=== PATIENT | female | born 1960 | race Caucasian/White ===

== ENCOUNTER 2019-11-20 11:16 | Emergency (ER) | payer MEDICARE, MEDICAID, SELFPAY ==
--- NOTE | ~2019-11-20 | XR_ITS ---
XR hip RT 2V w AP pelvis DATE: 11/20/2019 11:51 INDICATION: Fall. Pelvic and right hip pain TECHNIQUE: AP pelvis. AP and crosstable lateral views of right hip. COMPARISON: None FINDINGS: There is a comminuted fracture of the proximal right femoral shaft with complete medial dis placement and approximately 4 cm overriding of the major proximal and distal fracture fragments. Ther e is approximately 24 degrees apex lateral angulation. The pubic symphysis and sacroiliac joints are intact. No pelvic fracture or bone destruction is evide nt. There is no evidence of hip dislocation on either side. No fracture or dislocation of the right h ip itself. Diffuse osteopenia. IMPRESSION: Comminuted fracture of proximal right femoral shaft Reviewed, dictated and finalized at location D.
[2019-11-20 11:14] VITALS: BP 91/76; PULSE 89; RESP 18; TEMP 37.2; O2SAT 90
--- NOTE | 2019-11-20 11:29 | ED.FALL ---
HPI - Fall General Chief Complaint: Fall Stated Complaint: FALL - R LEG PAIN Time Seen by Provider: 11/20/19 11:29 Source: patient Mode of arrival: EMS Limitations: no limitations History of Present Illness HPI Narrative: A 59 y/o female presents to the ED, via EMS, after a fall today. Pt states that she was reaching for paper towels on the top shelf when she hit her head on the cabinet and fell backwards. Pt heard something pop in her RLE and she now c/o RLE pain, greatest near her hip. She denies CP and SOB. EMS gave Morphine en route. Fall from: standing Place fall occurred: home Loss of consciousness: none Related Data Allergies Allergy/AdvReac Type Severity Reaction Status Date / Time Iodinated Contrast Media Allergy Unknown Unknown Verified 11/20/19 11:24 Penicillins Allergy Unknown Unknown Verified 11/20/19 11:24 Review of Systems Review of Systems: All systems reviewed & are unremarkable except as noted in HPI and below Constitutional: Comments: Reports: a fall Cardiovascular: Cardiovascular: Denies chest pain Respiratory: Respiratory: Denies dyspnea Musculoskeletal: Comments: Reports: RLE pain Neurologic: Comments: Reports: HI [facility] Past Medical History Medical History Anxiety Arthritis Asthma Bronchitis COPD (chronic obstructive pulmonary disease) Depression Emphysema lung Endometriosis GERD (gastroesophageal reflux disease) [place] (hard of hearing) Hypothyroid Pneumonia Seizures Shingles Sinus problem Sleep apnea Wears glasses Surgical History Surgical History H/O bilateral cataract extraction H/O dilation and curettage H/O laparoscopy History of bladder surgery urethral sling History of hysterectomy History of orthopedic surgery bilateral wrist, left carpal tunnel History of tonsillectomy Family History Family History Other Family history of arthritis Family history of cardiovascular disease Family history of mental disorder Family history of seizure disorder Hypertension Social History Social History Smoking status: Former smoker Smoking end date: 09/02/14 Comments No PCP on file. Exam Const: General: alert and ill appearing chronically Nutritional Appearance: obese Orientation/consciousness: patient oriented x3 Other: mild distress HENMT: Mouth: Yes dry mucous membranes Eyes: Conjunctivae: conjunctivae normal Pupils: Equal, round and reactive pupils present Neck: Neck: normal visual inspection Resp: Effort & Inspection: normal respiratory effort Auscultation: wheezes Cardio: Rate: regular rate Rhythm: regular rhythm Skin: General skin exam: normal color Wounds: no wounds Neuro: General: patient oriented x3, moves all extremities and no focal motor deficits Speech: normal speech Extrem: Other: right leg shortened with tenderness over proximal thigh and hip Psych: Affect: Anxious affect present Course Consultations Consultation #1: Discussed case with Dr. Fisher and he does not feel comfortable taking this fracture. He recommends transfer. Date: 11/20/19 Time: 12:07 Vital Signs Vital signs: Vital Signs Temperature 37.2 C 11/20/19 11:14 Pulse Rate 89 11/20/19 11:14 Respiratory Rate 18 11/20/19 11:14 Blood Pressure 91/76 L 11/20/19 11:14 Pulse Oximetry 90 11/20/19 11:14 Temperature 37.2 C 11/20/19 11:14 Pulse Rate 102 H 11/20/19 13:42 Respiratory Rate 23 H 11/20/19 13:42 Blood Pressure 120/77 11/20/19 13:42 Pulse Oximetry 93 11/20/19 13:42 MDM - Fall Differential Diagnosis Differential diagnosis: Likely other (hip fracture, contusion) Medical Records Attestation: I reviewed the patient's medical records. Imaging Data Attestation: I personally reviewed and interpreted this imaging study as follows:
[2019-11-20 11:32] VITALS: BP 117/84; PULSE 91; RESP 18; O2SAT 94
[2019-11-20] MEDS: MORPHINE SULFATE 4 MG/ML INJ IV PUSH ×3 (12:17→17:05)
[2019-11-20 12:22] VITALS: BP 131/75; PULSE 89; RESP 21; O2SAT 94
[2019-11-20 13:42] VITALS: BP 120/77; PULSE 102; RESP 23; O2SAT 93
--- NOTE | 2019-11-20 14:24 | PC.NURSE ---
Pt report given to JAKE Borjas at [facility]. No further questions asked at this time.
--- NOTE | 2019-11-20 14:34 | PC.NURSE ---
[facility] requested, ETA of 1600 for pt transfer. Pt updated at this time, will continue to monitor.
[2019-11-20 14:38] VITALS: BP 141/80; PULSE 98; RESP 16
--- NOTE | 2019-11-20 15:10 | PC.NURSE ---
[facility] declined transfer [facility] accepted ETA 1600 Trip #[id number]
--- NOTE | 2019-11-20 16:48 | PC.NURSE ---
ETA for [facility] [id number]
[2019-11-20 17:07] VITALS: BP 142/62; PULSE 92; RESP 18; O2SAT 92
[2019-11-20] MEDS: MORPHINE SULFATE 2 MG/ML INJ IV PUSH (17:24)
--- NOTE | 2019-11-20 17:47 | PC.NURSE ---
rt pedal pulse audible with doppler after traction splint placed. d/c with ems to [facility] emergency room. stable at time of transfer
== END 2019-11-20 17:47 | disposition short-term general hospital (02) ==
PROVIDERS: Emergency Provider Emergency Medicine; PCP Family Medicine Adolescent Medicine
DX: S72.351A Displaced comminuted fracture of shaft of right femur, initial encounter for closed fracture (principal); M19.90 Unspecified osteoarthritis, unspecified site; J43.9 Emphysema, unspecified; K21.9 Gastro-esophageal reflux disease without esophagitis; N80.9 Endometriosis, unspecified; E03.9 Hypothyroidism, unspecified; G47.30 Sleep apnea, unspecified; Z98.42 Cataract extraction status, left eye; Z98.41 Cataract extraction status, right eye; W18.09XA Striking against other object with subsequent fall, initial encounter
CPT/HCPCS: 73502; 73521; 96374; 96376; 99285; J2270

== ENCOUNTER 2020-02-18 13:00 | Outpatient (RCR) | payer MEDICARE, MEDICAID, SELFPAY ==
--- NOTE | 2020-01-20 15:35 | PTOPEVAL ---
PHYSICAL THERAPY EVALUATION AND PLAN OF CARE 01-20-2020 The PT evaluation was completed for the diagnosis of s/p R femur fracture with ORIF due to fall. Her plan of treatment is scheduled for 2x/week for 4 weeks. Thank you for referring Deena Wylie to [facility]. Please review, sign, date and return this plan of care KATINA. I agree with and certify that the following plan of care is medically necessary. Referring Physician Date Attending Provider: Nestor Mann MD *PT Outpatient Evaluation Start: 01/20/20 14:30 Document 01/20/20 14:31 ALICIA (Rec: 01/20/20 15:29 ALICIA [id number]) Outpatient Past Medical History Past Medical History Source of Past Medical History Patient Neurological History Hx Seizures Yes: meds Cardiovascular History Hx Cardiac Disorders No Significant History Respiratory History Hx Asthma Yes: meds/inhaler Hx Chronic Obstructive Pulmonary Disease Yes: meds/inhaler (COPD) Gastrointestinal History Hx Other Gastrointestinal Disorders Yes: exp lap Musculoskeletal History Hx Fractures Yes Hx Orthopedic Surgery Yes: R knee arthroscopy, R & L hand/wrist surg Hx Other Musculoskeletal Disorders Yes: B carpal tunnel:L sh fracture- non surgical Endocrine History Hx Hypothyroidism Yes: meds HEENT History Hx Cataracts Yes: surg bilat eyes Hx Tonsillectomy Yes Reproductive History Hx Hysterectomy Yes Psychosocial History Hx Depression Yes Evaluation Information Problem Diagnosis s/p R femur fracture with ORIF Onset 11-20-2019 Subjective Information standing, turned and fell- Query Text:As Reported By Patient/ fractured leg; had [facility] PT, Family completed with it; Previous Treatments Previous Treatments For This Problem hospital, then to [facility] for rehab- one day; did not like and went home,[facility] Prior Level of Function Activity Level (Last 3 Months) Occupation not working- on disability for back pain and depression Activity of Daily Living Ability Independent Indoor/Home Mobility Independent Community Mobility Independent Stairs Ability Independent Functional Cognition (Planning, Shopping Independent , Taking Medications) Cooking Yes Cleaning Yes Laundry Yes Shopping Yes Driving No Home Setting Home Type House,Multiple Levels Environmental Barriers Railing, Ascend Left,Railing,
--- NOTE | 2020-01-28 10:38 | PCPTNOTE ---
pt called and canceled due to illness;
--- NOTE | 2020-02-11 08:39 | PCPTNOTE ---
Patient called & cancelled scheduled appointment this date due to being sick.
--- NOTE | 2020-02-18 13:40 | PTOPEVAL ---
PHYSICAL THERAPY DISCHARGE 02-18-2020 Ms. Wylie has received 7 PT sessions, from January 19 to today, for the diagnosis of S/P R femur ORIF. She called and canceled 2 appointments. She has improved with R LE strength, transfer skills supine/sit and sit/stand, R hip ER AROM, TUG, walking tolerance and stair ability. She has been educated on a home exercise program. Deena is ambulating with the wheeled walker and continues to report pain rating of 6-10/10. She is independent with supine and standing exercises. She requests that her PT be finished today. And stated that she would continue to do her home exercises, use the wheeled walker and walk as much as she is able. The goals were partially achieved. Discharge PT services. Thank you for referring Deena Wylie to [facility]. Please review, sign, date and return this discharge KATINA. I agree with and certify that the following plan of care is medically necessary. Referring Physician Date Attending Provider: Nestor Mann MD Document 02/18/20 13:00 ALICIA (Rec: 02/18/20 13:40 ALICIA [id number]) Subjective Information Deena reports: not walking Query Text:As Reported By Patient/ very much, use wheel chair at Family home when leg hurts-but using less; can put on shoes and socks without any problems; has not been going out and during much due to the virus; wants to be finished with therapy and do her exercises at home; Pain Assessment Timing of Pain Assessment Timing of Pain Assessment Assessment Pain Scale Pain Scale Used Numeric (1 - 10) Self Report Pain Assessment Right Leg(s) Reported Pain Level 8 Radicular Pain Location mid quad and lateral hip Pain Frequency Acute Other Pain Description hurts Lowest Pain Intensity 6 Greatest Pain Intensity 10 Pain Aggravating Factors Walking Pain Relief Interventions Used By Elevation,Heat,Inactivity/Rest Patient ,Medication Additional Pain Comments no falls; reports taking 4 or more pain pills/day; Pain Score Pain Score 8: Self Report Lower Extremity Range of Motion General Lower Extremity Range of Motion Gross Lower Extremity Range of Motion sitting: R hip ER- able to Comments lift R LE and cross leg, R ankle to above knee; supine hip IR and ER without pain; ER 50' with hip/knee flexion 90'; Lower Extremity Muscle Strength Testing General Lower Extremity Strength Gross Lower Extremity Strength supine R LE: SLR x 15 reps; bridge x 18 reps;hip abduction
== END 2020-02-19 08:28 | disposition home or self-care (01) ==
LOC: ANHPT 13:00
PROVIDERS: PCP Family Medicine Adolescent Medicine; Visit Provider Family Medicine Adolescent Medicine
DX: S72.91XD Unspecified fracture of right femur, subsequent encounter for closed fracture with routine healing (principal)
CPT/HCPCS: 97110; 97161

== ENCOUNTER → 2020-05-02 12:39 | Outpatient (CLI) | payer MEDICARE, MEDICAID, SELFPAY ==
--- NOTE | ~2020-05-02 | XR_ITS ---
EXAMINATION: XR hip BI wo pelvis DATE: 05/02/2020 14:56 INDICATION: Bilateral hip pain. TECHNIQUE: 2 views of right hip and 2 views of left hip on a total of 7 radiographs were obtained. COMPARISON: Pelvis and right hip radiographs 11/20/2019 FINDINGS: There is a comminuted fracture of right femoral diaphysis. The main distal fracture fragmen t demonstrates 2 mm medial displacement and 5 mm posterior displacement. Internal fixation seen with antegrade intramedullary levi, 2 distal interlocking screws, and 2 femoral head/neck screws. There is some callus formation. There is mild bilateral hip osteoarthritis. Suture anchors overlie the pubic b ones. IMPRESSION: 1. Healing comminuted fracture of diaphysis of right femur with internal fixation. 2. Mild osteoarthritis of the hips. Reviewed, dictated and finalized at location A. IMPRESSION: 1. Healing comminuted fracture of diaphysis of right femur with internal fixati on. 2. Mild osteoarthritis of the hips.
== END ==
PROVIDERS: PCP Family Medicine Adolescent Medicine; Visit Provider Family Medicine Adolescent Medicine
DX: M16.0 Bilateral primary osteoarthritis of hip (principal)
CPT/HCPCS: 73521

== ENCOUNTER 2022-07-02 15:17 | Outpatient (CLI) | payer MEDICARE, MEDICAID, SELFPAY ==
--- NOTE | ~2022-07-02 | MM_ITS ---
EXAMINATION: MM screening ruddy BI w kenyetta HISTORY: Screening TECHNIQUE: Craniocaudal and mediolateral oblique 3-D tomosynthesis images were obtained and synthetic 2-D images were generated. CAD analysis was submitted and interpreted. COMPARISON: Comparison to multiple prior studies sequentially, with oldest reviewed study dated 02/12. BREAST PARENCHYMAL COMPOSITION: Breast composed of scattered areas of fibroglandular density FINDINGS: There is no evidence of suspicious mass, calcification, or architectural distortion to sugg est malignancy in either breast. There has been no suspicious interval change. IMPRESSION: 1. No mammographic evidence of malignancy. 2. Recommend routine screening mammography in one year. BI-RADS Category 1: Negative Reviewed, dictated and finalized at location A.
== END 2022-07-02 15:18 | disposition home or self-care (01) ==
LOC: ANHIMG 15:19
PROVIDERS: PCP Family Medicine Adolescent Medicine; Visit Provider Family Medicine Adolescent Medicine
DX: Z12.31 Encounter for screening mammogram for malignant neoplasm of breast (principal)
CPT/HCPCS: 77063; 77067

== ENCOUNTER → 2022-09-14 09:58 | Outpatient (CLI) | payer MEDICARE, MEDICAID, SELFPAY ==
--- NOTE | ~2022-09-14 | XR_ITS ---
EXAMINATION: XR lumbar spine 2-3V DATE: 09/14/2022 10:28 INDICATION: Low back pain TECHNIQUE: Anteroposterior and lateral views of the lumbar spine, and cone-down lateral view of the l umbosacral junction were obtained. COMPARISON: 06/28/2015 FINDINGS: There is a chronic mild compression fracture of L5. There are 3 mm of stable anterolisthesi s of L5 on S1. Vertebral body heights and alignment are otherwise maintained. There is severe loss of intervertebral disc space height at L5-S1 with interval worsening. There is moderate to severe facet joint osteoarthritis of the lower lumbar spine. Calcified atherosclerosis is noted. There is antegra de intramedullary levi and interlocking intratrochanteric screw fixation of the right femur. There is moderate osteoarthritis of the left hip. IMPRESSION: 1. Chronic L5 compression fracture without significant change and severe spondylosis at L5-S1 with in terval worsening. Reviewed, dictated and finalized at location B. BER IMPRESSION: 1. Chronic L5 compression fracture without significant change and severe spondy losis at L5-S1 with interval worsening.
== END ==
PROVIDERS: PCP Family Medicine Adolescent Medicine; Visit Provider Family Medicine Adolescent Medicine
DX: S32.050A Wedge compression fracture of fifth lumbar vertebra, initial encounter for closed fracture (principal); X58.XXXA Exposure to other specified factors, initial encounter; M47.896 Other spondylosis, lumbar region
CPT/HCPCS: 72100

== ENCOUNTER → 2022-10-11 10:18 | Outpatient (CLI) | payer MEDICARE, MEDICAID, SELFPAY ==
--- NOTE | ~2022-10-11 | MR_ITS ---
MRI of the lumbar spine Clinical History: Back pain Technique: Axial T2-weighted images, and sagittal T1-weighted, T2-weighted, and T2 fat-sat images wer e acquired. COMPARISON: 10/27/2012 Findings: There is an acute to subacute compression fracture at the superior endplate region of L3, w ith mild loss of height, and mild marrow edema. There is focal retropulsion of the posterior superior corner of the L3 vertebral body. Stable chronic compression deformity of L5. Intraosseous hemangioma at T12 is unchanged. At L1-L2, there is no disc bulge or herniation. No spinal canal stenosis or neural foraminal narrowin g. At L2-L3, there is minimal disc bulge. No spinal canal stenosis or neural foraminal narrowing. L3-L4, there is minimal disc bulge and minimal facet joint hypertrophy. No spinal canal stenosis or n eural foraminal narrowing. At L4-L5, there is mild disc bulge with facet arthropathy. No spinal canal stenosis or neural foramin al narrowing. At L5-S1, there is diffuse disc bulge with mild facet arthropathy. No spinal canal stenosis. There is moderate bilateral neural foraminal narrowing. Paravertebral soft tissues are unremarkable. Impression: Acute to subacute mild compression fracture at the superior endplate region of L3, as detailed above. Stable chronic compression deformity of L5. Moderate bilateral neural foraminal narrowing at L5-S1, on a degenerative basis. Reviewed, dictated and finalized at [facility]. MANAGER Impression: Acute to subacute mild compression fracture at the superior endplate region of L3, as detailed above. Stable chronic compression deformity of L5. Moderate bilateral neural foraminal narrowing at L5-S1, on a degenerative basis .
== END ==
PROVIDERS: PCP Family Medicine Adolescent Medicine; Visit Provider Family Medicine Adolescent Medicine
DX: M54.50 Low back pain, unspecified (principal); M48.56XA Collapsed vertebra, not elsewhere classified, lumbar region, initial encounter for fracture; M48.07 Spinal stenosis, lumbosacral region
CPT/HCPCS: 72148

== ENCOUNTER → 2022-11-01 13:54 | Outpatient (CLI) | payer MEDICARE, MEDICAID, SELFPAY ==
--- NOTE | ~2022-11-01 | CT_ITS ---
EXAMINATION: CT lumbar spine wo con DATE: 11/01/2022 14:11 INDICATION: Lumbar compression fracture. TECHNIQUE: Computed tomography (CT) of the lumbar spine was performed without intravenous contrast. A utomated exposure control and iterative reconstruction technique were employed. The dose-length produ ct was 845.61 mGy-cm. COMPARISON: CT abdomen and pelvis 07/19/2011 FINDINGS: Partially visualized is a sliding hiatal hernia. There is 7 degrees levocurvature of lumbar spine. There is a burst fracture of L3 with 4/5 loss of height and retropulsion of bone 8 mm into ce ntral spinal canal with severe central canal stenosis. There is a fracture of the left L3 pedicle. Th ere is a chronic compression fracture of L5 with 2/5 loss of height. There is a chronic right L5 pars defect. There is 5 mm anterolisthesis of L5 on S1. There is mild chronic anterior wedging of L1 vert ebral body. There is mildly decreased disc height at L4-L5 and severely decreased disc height at L5-S 1. The following disc levels are specifically discussed: L1-L2: The disc does not extend beyond the endplate margin. There is mild right and moderate left fac et joint osteoarthritis. There is no neural foraminal stenosis. There is no central canal stenosis. L2-L3: The disc is bulging. There is mild bilateral facet joint osteoarthritis. There is mild bilater al neural foraminal stenosis. There is severe central canal stenosis. L3-L4: The disc is bulging. There is moderate right and mild left facet joint osteoarthritis. There i s no neural foraminal stenosis. There is mild central canal stenosis. L4-L5: The disc is bulging. There is severe bilateral facet joint osteoarthritis. There is mild bilat eral neural foraminal stenosis. There is mild central canal stenosis. L5-S1: The disc is bulging. There is severe bilateral facet joint osteoarthritis. There is mild bilat eral neural foraminal stenosis. There is no central canal stenosis. IMPRESSION: 1. Burst fracture of L3 with fracture of the pedicle and severe central canal stenosis. 2. Chronic right L5 pars defect. 3. Severe lumbar spondylosis. Reviewed, dictated and finalized at location A. PAD INSPECTOR IMPRESSION: 1. Burst fracture of L3 with fracture of the pedicle and severe central canal s tenosis. 2. Chronic right L5 pars defect. 3. Severe lumbar spondylosis.
== END ==
PROVIDERS: PCP Family Medicine Adolescent Medicine
DX: S32.000A Wedge compression fracture of unspecified lumbar vertebra, initial encounter for closed fracture (principal); S32.031A Stable burst fracture of third lumbar vertebra, initial encounter for closed fracture; M43.06 Spondylolysis, lumbar region
CPT/HCPCS: 72131

== ENCOUNTER → 2022-11-12 09:15 | Outpatient (CLI) | payer MEDICARE, MEDICAID, SELFPAY ==
--- NOTE | ~2022-11-12 | DEXA_ITS ---
Bone Density Report Name: TORO JAMIL Age: 62 Sex: Female Ethnicity: White Date of : 1960 Indication: postmenopausal; screening for osteoporosis; prior fracture; seizure disorder; asthma or emphysema; hysterectomy; Referring Provider: SINGH WHITNEY Study: Bone densitometry was performed. Exam Date: November 12, 2022 Accession number: [id number] Bone Density: Region BMD T-score Z-score Classification AP Spine (L1-L4) 0.791 -2.3 -0.6 Osteopenia Femoral Neck (Left) 0.562 -2.6 -1.1 Osteoporosis Total Hip (Left) 0.744 -1.6 -0.4 Osteopenia World Health Organization criteria for BMD impression classify patients as: Normal (T-score at or above -1.0), Osteopenia (T-score between -1.0 and -2.5), or Osteoporosis (T-score at or below -2.5). 10-year Fracture Risk: FRAX not reported because: Some T-score for Spine Total or Hip Total or Femoral Neck at or below -2.5 Prior hip or vertebral fracture Treated for osteopor Clinical Information Provided by Patient: Have had a previous hip or vertebral fracture Has had a low trauma fracture Smokes Is being treated for osteoporosis Has used the following medications: Fosamax (i.e. alendronate), Vitamin D Has the following medical conditions: Any Seizure Disorders, Asthma or Emphysema, Hysterectomy, thyroid condition type unknown Patient maximum height was 62 Menopause Age: 41 No regular weight bearing exercise Does not regularly consume dairy products Onset of menses at age [age] Number of children 3 Impression: The patient has established osteoporosis, based on the Left Femoral Neck T-score and the existence of a prior fracture. The patient has risk factors, including: smoking, previous fracture. Discussion: It is important to ask patients whether they are taking their medications and to encourage continued and appropriate compliance with their osteoporosis therapies to reduce fracture risk. It is also important to review their risk factors and encourage appropriate calcium and vitamin D intakes, exercise, fall prevention and other lifestyle measures. Follow-Up: Consider a repeat BMD and Vertebral Fracture Assessment (VFA) exam in 2 years or sooner if medically necessary, to reassess this patient's status. Reported by: SID on 11/12/2022 9:56:00 AM. Reviewed, dictated and finalized at location ABart EDUARDO
== END ==
PROVIDERS: PCP Family Medicine Adolescent Medicine; Visit Provider Neurological Surgery
DX: N95.9 Unspecified menopausal and perimenopausal disorder (principal); M85.89 Other specified disorders of bone density and structure, multiple sites; M81.0 Age-related osteoporosis without current pathological fracture
CPT/HCPCS: 77080

== ENCOUNTER → 2022-11-13 10:36 | Outpatient (CLI) | payer MEDICARE, MEDICAID, SELFPAY ==
--- NOTE | ~2022-11-13 | MR_ITS ---
MRI of the lumbar spine Clinical History: Compression fracture Technique: Axial T2-weighted images, and sagittal T1-weighted, T2-weighted, and T2 fat-sat images wer e acquired. COMPARISON: 10/11/2022 Findings: There has been significant progressive loss of height of the L3 vertebral body, with now se donya compression present, and significant retropulsion of the posterior portion of the L3 vertebral b hernandez into the spinal canal. There is diffuse marrow edema hypointense T1 signal throughout the L3 vert ebral body. Mild chronic compression deformity of L5 is unchanged. At L1-L2, there is no disc bulge or herniation. No spinal canal stenosis or neural foraminal narrowin g. At L2-L3, there is no significant disc bulge or herniation. No spinal canal stenosis. There is mild t o moderate right neural foraminal narrowing and mild left neural foraminal narrowing. Retropulsion of the L3 vertebral body results in severe spinal canal stenosis/thecal sac compression at the L3 level. L3-L4, there is no disc bulge or herniation. No spinal canal stenosis. Probable minimal bilateral archana ral foraminal narrowing. At L4-L5, there is minimal disc bulge with facet arthropathy. No spinal canal stenosis or neural fora manju narrowing. At L5-S1, there is mild disc bulge and facet arthropathy. No spinal canal stenosis. There is moderate bilateral neural foraminal narrowing. Paravertebral soft tissues are unremarkable. Impression: Significant worsening of the L3 compression fracture since prior exam, with significant progressive l oss of height and also significantly worsened retropulsion of the posterior portion vertebral body. Severe spinal canal stenosis/thecal sac compression at L3 related to retropulsion of the L3 vertebral body. Chronic mild compression deformity of L5, unchanged. Mild degenerative spondylitic changes, as above. Reviewed, dictated and finalized at [facility]. Impression: Significant worsening of the L3 compression fracture since prior exam, with sig nificant progressive loss of height and also significantly worsened retropulsio n of the posterior portion vertebral body. Severe spinal canal stenosis/thecal sac compression at L3 related to retropulsi on of the L3 vertebral body. Chronic mild compression deformity of L5, unchanged. Mild degenerative spondylitic changes, as above.
== END ==
PROVIDERS: PCP Family Medicine Adolescent Medicine; Visit Provider Neurological Surgery
DX: S32.000A Wedge compression fracture of unspecified lumbar vertebra, initial encounter for closed fracture (principal); M48.061 Spinal stenosis, lumbar region without neurogenic claudication
CPT/HCPCS: 72148

== ENCOUNTER 2022-11-21 09:59 | Outpatient (CLI) | payer MEDICARE, MEDICAID, SELFPAY ==
--- NOTE | 2022-11-21 10:23 | ECG_ITS ---
Measurements Intervals [place] Rate: 94 P: 49 NC: 151 QRS: 69 QRSD: 80 T: 59 QT: 344 QTc: 431 Interpretive Statements SINUS RHYTHM EARLY PRECORDIAL R/S TRANSITION NONSPECIFIC T-WAVE ABNORMALITY- ANT/HIGH LAT LEADS BASELINE ARTIFACT- AVR, V4 BORDERLINE ECG COMPARED TO ECG 11/08/2018 17:22:29 SINUS RHYTHM NOW PRESENT Electronically Signed On 11-21-2022 14:19:03 CDT by Husam Mathias D.O.
[2022-11-21 10:39] LABS: Basophils Absolute Auto 0.1 K/mm3 (0.0-0.1); Eosinophils Percent Auto 0.6 % (0-4.4); Hematocrit 38.3 % (37.0-47.0); Hemoglobin 10.9 g/dL (12.0-15.0); Immature Granulocyte Absolute 0.02 K/mm3 (0.00-0.031); Immature Granulocyte Percent A 0.4 % (0-0.5); Lymphocytes Absolute Auto 1.26 K/mm3 (0.9-3.2); Lymphocytes Percent Auto 25.6 % (18.3-44.2); Mean Corpuscular HGB Conc 28.5 g/dl (32-36); Mean Corpuscular Hemoglobin 21.1 pg (26-34); Mean Corpuscular Volume 74.1 fl (80-100); Mean Platelet Volume 9.4 fl (7.4-10.4); Monocytes Absolute Auto 0.3 K/mm3 (0.1-0.6); Monocytes Percent Auto 5.9 % (2.6-8.5); Neutrophils Absolute Auto 3.3 K/mm3 (1.3-6.7); Neutrophils Percent Auto 66.5 % (45.5-73.1); Platelet Count Result 245 k/mm3 (150-375); Red Blood Count 5.17 M/mm3 (4.2-5.4); Red Cell Distribution Width 17.7 % (11.5-14.5); White Blood Count 4.9 K/mm3 (4.5-10.0)
[2022-11-21 10:50] LABS: Partial Thromboplastin Time 78.6 SECONDS (22.3-36.8)
[2022-11-21 11:04] LABS: Anion Gap 7 mmol/L (8-16); Blood Urea Nitrogen 13 mg/dL (7-17); Calcium 9.1 mg/dL (8.4-10.2); Carbon Dioxide 31 mmol/L (22-30); Chloride 98 mmol/L (98-107); Estimated Glomerular Filt Rate > 60; Glucose 109 mg/dL (65-110); Sodium 136 mmol/L (137-145)
[2022-11-21 11:24] LABS: Hypochromasia 1+ (NORMAL); Platelet Estimate Adequate (Adequate)
[2022-11-21 11:25] LABS: Microcytosis 1+ (NORMAL); Schistocytes None Seen (NORMAL)
[2022-11-21 11:33] LABS: Appearance Urine Turbid (Clear); Bacteria Urine 3+ /hpf; Bilirubin Urine Negative (Negative); Blood Urine 1+ (Negative); Color Urine Yellow (Yellow); Glucose Urine UA Negative (Negative); Ketones Urine Negative (Negative); Leukocyte Esterase Ur 3+ LEU/UL (NEGATIVE); Need Manual Microscopic Reviewed; Nitrate Urine Negative (Negative); Protein Urine Negative (Negative); Specific Grav Ur 1.009 (1.001-1.035); Squamous Epithelial Cell Urine Occasional /hpf (Few); Urobilinogen Urine 0.2 mg/dL (<2.0); WBC Clumps Urine Present /HPF; WBC Urine >100 /hpf (0-3)
[2022-11-21 11:35] LABS: Add Urine Microscopic? YES
== END 2022-11-21 10:00 | disposition home or self-care (01) ==
PROVIDERS: PCP Family Medicine Adolescent Medicine; Visit Provider Neurological Surgery
DX: Z01.818 Encounter for other preprocedural examination (principal); R07.9 Chest pain, unspecified; R94.31 Abnormal electrocardiogram [ECG] [EKG]
CPT/HCPCS: 36415; 80048; 81001; 85025; 85730; 93005

== ENCOUNTER 2022-11-30 11:25 | Outpatient (CLI) | payer MEDICARE, MEDICAID, SELFPAY ==
[2022-11-30 11:51] LABS: Appearance Urine Cloudy (Clear); Bacteria Urine 3+ /hpf; Bilirubin Urine Negative (Negative); Blood Urine 1+ (Negative); Color Urine Yellow (Yellow); Glucose Urine UA Negative (Negative); Ketones Urine Negative (Negative); Leukocyte Esterase Ur 3+ LEU/UL (Negative); Nitrate Urine Negative (Negative); Non Pathogenic Casts 0-2; Protein Urine Negative (Negative); Specific Grav Ur 1.005 (1.001-1.035); Squamous Epithelial Cell Urine None seen /hpf (Few); Urobilinogen Urine 0.2 mg/dL (<2.0); WBC Urine >100 /hpf; pH Urine 7.5 (5.0-9.0)
[2022-11-30 11:58] LABS: Add Urine Microscopic? YES
== END 2022-11-30 11:26 | disposition home or self-care (01) ==
PROVIDERS: PCP Family Medicine Adolescent Medicine; Visit Provider Neurological Surgery
DX: S32.000A Wedge compression fracture of unspecified lumbar vertebra, initial encounter for closed fracture (principal); R82.90 Unspecified abnormal findings in urine; X58.XXXA Exposure to other specified factors, initial encounter
CPT/HCPCS: 81001; 87086; 87088

== ENCOUNTER → 2023-01-25 11:27 | Outpatient (CLI) | payer MEDICARE, MEDICAID, SELFPAY ==
--- NOTE | ~2023-01-25 | XR_ITS ---
XR lumbar spine 2-3V 01/25/2023 11:56 Indication: Status post laminectomy. Procedure: 3 views lumbar spine Comparison: MRI dated 11/13/2022 Findings: There is a severe burst fracture of L3 which has a similar appearance to prior MRI allowing for technique. 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 There is a new wedge compression fracture of L1, likely acute/subacute. There is posterior spina l fusion with pedicle screws at L1, L2, L4, L5 and S1. Hardware appears intact. There are laminectomy changes of the mid and lower lumbar spine. Impression: 1: New wedge compression fracture of L1, likely acute/subacute. There is approximately 50% loss of ve rtebral body height anteriorly. 2: Stable severe burst fracture of L3. 3: Stable superior endplate compression fracture of L5. Reviewed, dictated and finalized at location B. Impression: 1: New wedge compression fracture of L1, likely acute/subacute. There is approx imately 50% loss of vertebral body height anteriorly. 2: Stable severe burst fracture of L3. 3: Stable superior endplate compression fracture of L5.
== END ==
PROVIDERS: PCP Family Medicine Adolescent Medicine; Visit Provider Neurological Surgery
DX: M96.1 Postlaminectomy syndrome, not elsewhere classified (principal); M48.56XA Collapsed vertebra, not elsewhere classified, lumbar region, initial encounter for fracture; S32.031A Stable burst fracture of third lumbar vertebra, initial encounter for closed fracture
CPT/HCPCS: 72100

== ENCOUNTER 2023-02-15 17:35 | Emergency (ER) | payer MEDICARE, MEDICAID, SELFPAY ==
--- NOTE | ~2023-02-15 | XR_ITS ---
EXAM: XR abdomen obstructive series DATE: 02/15/2023 18:43 HISTORY: CONSTIPATION . COMPARISON: None available. FINDINGS: Partially visualized, uncomplicated appearing lumbar fusion hardware and right femoral janelle dware Calcified right lower lobe granuloma. Normal bowel gas pattern, noting that a relative paucity of bowel gas does limit interpretation. No organomegaly. Pelvic phleboliths. Lumbar degenerative disc disease. Moderate left and mild right hip osteoarthritis. IMPRESSION: No radiographic evidence of pneumoperitoneum, obstruction, or ileus. Reviewed, dictated and finalized at location K. IMPRESSION: No radiographic evidence of pneumoperitoneum, obstruction, or ileus .
[2023-02-15 18:12] VITALS: BP 148/57; PULSE 100; RESP 16; TEMP 36.5; O2SAT 94
[2023-02-15 19:35] VITALS: BP 163/79; PULSE 109; RESP 14; TEMP 36.7; O2SAT 100
--- NOTE | 2023-02-15 21:36 | ED.ABDPAIN ---
HPI - Abdominal Pain General Chief Complaint: Abdominal Pain Stated Complaint: CONSTIPATED FOR 1 WEEK Time Seen by Provider: 02/15/23 19:38 History of Present Illness HPI narrative: Patient presenting with constipation, she does have history of constipation she has not been taking her stool softeners as diligently as normal. She has no nausea or vomiting, she does complain of some feeling of distention to her lower abdomen. She has been trying magnesium citrate, MiraLAX. Related Data Allergies Allergy/AdvReac Type Severity Reaction Status Date / Time Iodinated Contrast Media Allergy Unknown Unknown Verified 01/16/23 10:35 Penicillins Allergy Unknown Unknown Verified 01/16/23 10:35 cefdinir [From Omnicef] AdvReac Intermediate unknown Verified 01/16/23 10:35 clarithromycin AdvReac Intermediate unknown Verified 01/16/23 10:35 Review of Systems Review of Systems: CONST: No fever. HEENT: No sore throat C/V: No chest pain RESP: No cough GI: Reports constipation : No dysuria. M/S: No joint pain. SKIN: No rash. NEURO: [No headache or focal numbness or weakness] PSYCH: [No depression] [facility] Past Medical History Medical History Anxiety Asthma COPD (chronic obstructive pulmonary disease) Depression Endometriosis GERD (gastroesophageal reflux disease) Hypothyroid Lumbar compression fracture Postlaminectomy syndrome, not elsewhere classified L2 & L3 Seizures Sleep apnea Surgical History Surgical History H/O bilateral cataract extraction 2014 H/O dilation and curettage H/O laparoscopy History of arthroscopy of knee (03/25/17) History of bladder surgery urethral sling 2014 History of carpal tunnel surgery bilateral wrists History of orthopedic surgery 11/21/19 right leg broken/femur metal levi inserted History of tonsillectomy History of tubal ligation History of vaginal hysterectomy (05/28/96) TVH w/BSO/cystocele repair/perinoplasty--stress urinary incontinence, chronic pelvic pain, endometriosis Family History Family History Father Acute myocardial infarction Heart disease Mother Heart disease CHF Cerebrovascular accident Osteoporosis Hypertension Other Family history of cardiovascular disease Family history of mental disorder Family history of seizure disorder Social History Social History Social History: Deena feels very confident filling out her medical forms and has asked for assistance with paying utility bills within the last 12 months. Smoking packs per day: 0.5 Smoking cigarettes per day: 10.0 Years smoked: 25 Smoking pack-years: 12.50 Smoking status: Current every day smoker Tobacco type: cigarettes Second hand tobacco smoke exposure: Yes Alcohol intake: never Substance use: never Substance use type: does not use Lack of Transportation: No Lack of Food: Never True Current Housing: I Have Housing Concerned About Future Housing: No Difficulty Paying Gas/Electric Bills: No Difficulty Paying for Meds: No Currently Unemployed: No Education: High School Diploma/GED Difficulty w/ Childcare or Family Care: No Living arrangements: with family Occupation/Education: retired Gender identity (if verbalized by the patient): Female Sexual Orientation (if Verbalized by the Patient): Straight or Heterosexual Spiritual care concerns: No Agree to blood products: Yes Exam Narrative: EXAMINATION OF ORGAN SYSTEMS/BODY AREAS: Constitutional: Vital signs per nursing GENERAL:[No acute distress, non-toxic appearing.] HEAD: Normal with no signs of head trauma. EYES: EOMI, conjunctiva normal ENT: Hearing grossly intact LUNGS: Nonlabored breathing. HEART: [Regular rate and rhythm] ABD: [Soft], slightly distended, [nontender to palpat
[2023-02-15 21:39] VITALS: BP 153/96; PULSE 75; RESP 15; O2SAT 96
== END 2023-02-15 22:09 | disposition home or self-care (01) ==
PROVIDERS: Emergency Provider Emergency Medicine; PCP Family Medicine Adolescent Medicine
DX: K59.00 Constipation, unspecified (principal); J44.9 Chronic obstructive pulmonary disease, unspecified; E03.9 Hypothyroidism, unspecified; N80.9 Endometriosis, unspecified; K21.9 Gastro-esophageal reflux disease without esophagitis; G47.30 Sleep apnea, unspecified; Z98.42 Cataract extraction status, left eye; Z98.41 Cataract extraction status, right eye; Z90.710 Acquired absence of both cervix and uterus; Z90.722 Acquired absence of ovaries, bilateral; Z90.79 Acquired absence of other genital organ(s); F17.210 Nicotine dependence, cigarettes, uncomplicated
CPT/HCPCS: 74019; 99283

== ENCOUNTER → 2023-07-03 09:30 | Outpatient (CLI) | payer MEDICARE, MEDICAID, SELFPAY ==
--- NOTE | ~2023-07-03 | XR_ITS ---
EXAMINATION: XR lumbar spine 2-3V DATE: 07/03/2023 10:01 INDICATION: Postlaminectomy syndrome. TECHNIQUE: 3 views of lumbar spine including standing views were obtained. COMPARISON: Lumbar spine radiographs 01/25/2023 FINDINGS: There is 3 mm anterolisthesis of L5 on S1. There is a compression fracture of L1 with 3/5 l oss of height. There is focal kyphosis at T12-L1. There is a chronic burst fracture of L3 with 4/5 lo ss of height centrally and retropulsion of bone into central spinal canal. There is a chronic malika jeni fracture of L5 with 2/5 loss of height centrally. There are changes of posterior fusion procedur e from L1 to S1 with pedicle screws. There is moderately decreased disc height at T12-L1, mildly decr eased disc height at L4-L5, and moderately decreased disc height at L5-S1. There is severe facet join t osteoarthritis in lower lumbar spine. IMPRESSION: 1. L1 compression fracture with worsening from 01/25/2023. Worsened focal kyphosis at T12-L1. 2. Moderate lumbar spondylosis. 3. Posterior fusion procedure from L1 to S1. Reviewed, dictated and finalized at location E. IMPRESSION: 1. L1 compression fracture with worsening from 01/25/2023. Worsened focal kyphos is at T12-L1. 2. Moderate lumbar spondylosis. 3. Posterior fusion procedure from L1 to S1.
== END ==
PROVIDERS: PCP Neurological Surgery; Visit Provider Neurological Surgery
DX: M43.06 Spondylolysis, lumbar region (principal); M43.27 Fusion of spine, lumbosacral region; S32.010A Wedge compression fracture of first lumbar vertebra, initial encounter for closed fracture; M96.1 Postlaminectomy syndrome, not elsewhere classified; X58.XXXA Exposure to other specified factors, initial encounter
CPT/HCPCS: 72100

== ENCOUNTER → 2023-07-29 09:45 | Outpatient (CLI) | payer MEDICARE, MEDICAID, SELFPAY ==
--- NOTE | ~2023-07-29 | CT_ITS ---
EXAMINATION: CT lumbar spine wo con DATE: 07/29/2023 10:13 INDICATION: Wedge compression fracture of unspecified vertebra. TECHNIQUE: Computed tomography (CT) of the lumbar spine was performed without intravenous contrast. A utomated exposure control and iterative reconstruction technique were employed. The dose-length produ ct was 744.50 mGy-cm. COMPARISON: Lumbar spine CT 11/01/2022, radiographs 07/03/2023, 01/25/2023 FINDINGS: There is 10 degrees levoscoliosis of lumbar spine. There is 4 mm anterolisthesis of L5 on S 1. There is a chronic burst fracture of L1 with 3/5 loss of height and retropulsion of bone 2 mm into central spinal canal. There is a subacute to chronic fracture of right 12th rib. There is a chronic burst fracture of L3 with 4/5 loss of height and retropulsion of bone 8 mm into central spinal canal. There is a chronic compression fracture of L5 with 2/5 loss of height. There are changes of posterio r fusion procedure from L1 to S1 with pedicle screws. There are lucencies around the bilateral L1 scr ews, right L5 screw, and bilateral S1 screws, consistent with loosening. There is mildly decreased di sc height at T12-L1, L1-L2, L2-L3, and L3-L4, moderately decreased disc height at L4-L5, and severely decreased disc height at L5-S1. There is a chronic right L5 pars defect. The following disc levels a re specifically discussed: L1-L2: The disc does not extend beyond the endplate margin. There is mild bilateral facet joint hyper trophy. There is no neural foraminal stenosis. There is no central canal stenosis. L2-L3: The disc does not extend beyond the endplate margin. There is no facet joint hypertrophy. Ther e is mild bilateral neural foraminal stenosis. There is moderate central canal stenosis with posterio r decompression. L3-L4: The disc is bulging. There is severe right and mild left facet joint osteoarthritis. There is mild bilateral neural foraminal stenosis. There is mild central canal stenosis. L4-L5: The disc is bulging. There is severe bilateral facet joint osteoarthritis. There is mild bilat eral neural foraminal stenosis. There is mild central canal stenosis. L5-S1: The disc is bulging. There is severe bilateral facet joint osteoarthritis. There is moderate b ilateral neural foraminal stenosis. There is mild central canal stenosis. IMPRESSION: 1. Posterior fusion procedure from L1 to S1 with loosening of the bilateral L1 screws, right L5 screw , and bilateral S1 screws. 2. Chronic right L5 pars defect. 3. Severe lumbar spondylosis. Reviewed, dictated and finalized at location A. CLAMP OPERATOR IMPRESSION: 1. Posterior fusion procedure from L1 to S1 with loosening of the bilateral L1 screws, right L5 screw, and bilateral S1 screws. 2. Chronic right L5 pars defect. 3. Severe lumbar spondylosis.
== END ==
PROVIDERS: PCP Neurological Surgery; Visit Provider Neurological Surgery
DX: S32.000A Wedge compression fracture of unspecified lumbar vertebra, initial encounter for closed fracture (principal); Z98.1 Arthrodesis status; M43.06 Spondylolysis, lumbar region; M43.8X6 Other specified deforming dorsopathies, lumbar region
CPT/HCPCS: 72131

== ENCOUNTER → 2023-09-10 11:52 | Outpatient (CLI) | payer MEDICARE, MEDICAID, SELFPAY ==
--- NOTE | ~2023-09-10 | XR_ITS ---
XR thoracolumbar DATE: 09/10/2023 12:41 INDICATION: First lumbar vertebral fracture TECHNIQUE: Standing AP and standing lateral neutral, flexion and extension views of the thoracolumbar spine COMPARISON: 07/29/2023 CT lumbar spine FINDINGS: Status post posterior surgical fusion at L1-S1 means of pedicle screws and rods. Diffuse prominent osteopenia. Severe burst fracture deformities at L1 and L3.. There is associated gibbus deformity at T12-L1. Mild compression fracture of L5. The sacroiliac joints are intact. Pins of right femoral head. No instability on flexion or extension is evident. IMPRESSION: No significant change since 07/29/2023 Reviewed, dictated and finalized at location L. ACTIVITIES COACH
== END ==
PROVIDERS: PCP Physician Assistant; Visit Provider Physician Assistant
DX: S32.019A Unspecified fracture of first lumbar vertebra, initial encounter for closed fracture (principal)
CPT/HCPCS: 72080

== ENCOUNTER 2023-12-18 09:36 | Outpatient (CLI) | payer MEDICARE, MEDICAID, SELFPAY ==
--- NOTE | ~2023-12-18 | XR_ITS ---
EXAM: XR lumbar spine 2-3V DATE: 12/18/2023 09:52 HISTORY: M40.205 - Unspecified kyphosis, thoracolumbar region . COMPARISON: 09/10/2023. FINDINGS: 5 nonrib-bearing lumbar-type vertebral bodies. Angled kyphosis at T12-L1. Uncomplicated ap pearing posterior fusion hardware, spanning L1-S1. The superior screws project beyond the superior L1 endplate, a chronic and stable finding. Severe burst fractures at L1 and L3, unchanged. Mild height loss at L5, unchanged. Multilevel lumbar listheses, also unchanged. Partially visualized right femora l hardware IMPRESSION: Stable severe L1 and L3 burst fractures. No radiographic evidence of new hardware related complication. No interval change. Reviewed, dictated and finalized at location K. IMPRESSION: Stable severe L1 and L3 burst fractures. No radiographic evidence o f new hardware related complication. No interval change.
== END 2023-12-18 09:37 ==
PROVIDERS: PCP Family Medicine Adolescent Medicine; Visit Provider Neurological Surgery
DX: S32.011A Stable burst fracture of first lumbar vertebra, initial encounter for closed fracture (principal); S32.031A Stable burst fracture of third lumbar vertebra, initial encounter for closed fracture; X58.XXXA Exposure to other specified factors, initial encounter
CPT/HCPCS: 72100

== ENCOUNTER 2024-03-11 08:37 | Outpatient (CLI) | payer MEDICARE, MEDICAID, SELFPAY ==
--- NOTE | ~2024-03-11 | XR_ITS ---
3 VIEWS LUMBAR SPINE Ordering provider: Stephanie Arreola MD History: . recent falls LBP for 1 year hx of sx 12-11-22 . Comparison: December 18, 2023 FINDINGS: VERTEBRAL BODIES:Chronic compression fracture of L1 and L3 is noted. No visible fracture or subluxat ion. Postoperative changes in the spine and the right hip.. DISK SPACES: Narrowing of the disc T12-L1, L1-L2, and L5-S1 is noted. Severe left hip osteoarthritic changes. SOFT TISSUES: Normal. IMPRESSION: No acute osseous abnormality lumbar spine. chronic compression fracture of L1 and L3. Postoperative changes extending from L1 to S1. Reviewed, dictated and finalized at location A.
== END 2024-03-11 08:38 ==
PROVIDERS: PCP Family Medicine Adolescent Medicine; Visit Provider Neurological Surgery
DX: M48.56XA Collapsed vertebra, not elsewhere classified, lumbar region, initial encounter for fracture (principal); Z98.1 Arthrodesis status
CPT/HCPCS: 72100

== ENCOUNTER 2024-08-31 09:54 | Outpatient (CLI) | payer MEDICARE, MEDICAID, SELFPAY ==
--- NOTE | ~2024-08-31 | XR_ITS ---
XR ribs RT 2V Ordering provider: Nestor Mann MD History: . Chest wall pain on the right after leaning over . Comparison: None. FINDINGS: BONES: Healing fractures of the right fifth, sixth, seventh, eighth and ninth ribs is seen posteriorl y. Degenerative spine. Postoperative changes in the lumbar spine. Osteoarthritic changes of the right ac romioclavicular joint. LUNGS: No effusions or infiltrates. No pneumothorax. SOFT TISSUES: Normal. IMPRESSION: Healing fractures in the right fifth, sixth, seventh, eighth and ninth ribs. Reviewed, dictated and finalized at location A. S AND EVENTS COORDINATOR
--- NOTE | ~2024-08-31 | XR_ITS ---
HISTORY: Pain in left shoulder with prior fx COMPARISON: 05/12/2019 TECHNIQUE: 3 views of the left shoulder were performed. FINDINGS: No acute fracture. Prior fracture deformity within the left femoral neck. The glenohumeral and acromioclavicular joint space is maintained The visualized portion of the adjacent left lung is clear. The humeral head is otherwise well seated within the glenoid fossa. IMPRESSION: No acute fracture or anterior dislocation. Prior fracture deformity within the left femoral neck. Reviewed, dictated and finalized at location A. ICULUM WRITER
== END 2024-08-31 09:55 | disposition home or self-care (01) ==
LOC: MICIMG 09:55
PROVIDERS: PCP Family Medicine Adolescent Medicine; Visit Provider Family Medicine Adolescent Medicine
DX: M21.822 Other specified acquired deformities of left upper arm (principal); S22.41XD Multiple fractures of ribs, right side, subsequent encounter for fracture with routine healing; X58.XXXD Exposure to other specified factors, subsequent encounter; R07.89 Other chest pain; M25.512 Pain in left shoulder
CPT/HCPCS: 71100; 73030

== ENCOUNTER 2024-11-24 09:36 | Outpatient (CLI) | payer MEDICARE, MEDICAID, SELFPAY ==
--- NOTE | ~2024-11-24 | DEXA_ITS ---
Bone Density Report Name: TORO JAMIL Age: 64 Sex: Female Ethnicity: White Date of : 1960 Indication: postmenopausal; screening for osteoporosis; height loss; prior fracture; seizure disorder; hysterectomy; Referring Provider: SINGH CARMICHAEL Study: Bone densitometry was performed. Exam Date: November 24, 2024 Accession number: [id number] Bone Density: Region BMD T-score Z-score Classification Femoral Neck (Left) 0.549 -2.7 -1.1 Osteoporosis Total Hip (Left) 0.724 -1.8 -0.5 Osteopenia World Health Organization criteria for BMD impression classify patients as: Normal (T-score at or above -1.0), Osteopenia (T-score between -1.0 and -2.5), or Osteoporosis (T-score at or below -2.5). 10-year Fracture Risk: FRAX not reported because: Some T-score for Spine Total or Hip Total or Femoral Neck at or below -2.5 Prior hip or vertebral fracture Treated for osteoporosis Clinical Information Provided by Patient: Have had a previous hip or vertebral fracture Has had a low trauma fracture Smokes Is being treated for osteoporosis Has used the following medications: Prolia (i.e. denosumab), Vitamin D, Calcium Has the following medical conditions: Any Seizure Disorders, Hysterectomy Patient maximum height was 63 Menopause Age: 35 No regular weight bearing exercise Onset of menses at age 11 Number of children 3 Impression: The patient has established osteoporosis, based on the Left Femoral Neck T-score and the existence of a prior fracture. The patient has risk factors, including: smoking, previous fracture. Discussion: It is important to ask patients whether they are taking their medications and to encourage continued and appropriate compliance with their osteoporosis therapies to reduce fracture risk. It is also important to review their risk factors and encourage appropriate calcium and vitamin D intakes, exercise, fall prevention and other lifestyle measures. Follow-Up: Consider a repeat BMD and Vertebral Fracture Assessment (VFA) exam in 2 years or sooner if medically necessary, to reassess this patient's status. Reported by: YULISSA on 11/24/2024 10:06:00 AM. Reviewed, dictated and finalized at location [facility]
--- OUTSIDE RECORDS SUMMARY | 2024-11-24 10:50 | XMS_ITS | Referral Summary ---
Author Organization [facility] [place] [address] Address [address] [place] [address] Care Team Providers Care Scientific Informatics Analyst Name Role Phone Nestor Mann MD Primary Care Prov ider No, Physician Unavailable Allergies Active Allergy Reactions Criticality Noted Date Comments Iodinated Contrast Media Unknown 03/30/2018 Penicillins Unknown 03/30/2018 Medications alendronate (FOSAMAX) 70 mg tablet Take 70 mg by mouth every 7 days. Take in the morning with a full glass of water, on an empty stomach, and do not take anything else by mouth or lie down for the next 30 min. Active albuterol HFA (PROVENTIL HFA,VENTOLIN HFA,PROAIR HFA) 90 mcg/actuation inhaler Inhale 2 puffs every 6 (six) hours as needed for wheezing. Active levETIRAcetam (KEPPRA) 500 mg tablet Take 1,500 mg by mouth 2 (two) times a day. Active gabapentin (NEURONTIN) 600 mg tablet Take 600 mg by mouth 4 (four) times a day. Active diclofenac DR (VOLTAREN) 75 mg EC tablet Take 75 mg by mouth 2 (two) times a day. Active topiramate (TOPAMAX) 200 mg tablet Take 200 mg by mouth daily. Active amLODIPine (NORVASC) 5 mg tablet Take 5 mg by mouth daily. Active simvastatin (ZOCOR) 20 mg tablet Take 20 mg by mouth nightly. Active fluticasone (FLOVENT DISKUS) 100 mcg/actuation diskus inhaler Inhale 2 puffs 2 (two) times a day. Rinse mouth with water after use to reduce aftertaste and incidence of candidiasis. Do not swallow. Active docusate sodium (COLACE) 100 mg capsuleIndicatio ns:constipation Take 100 mg by mouth daily. Active furosemide (LASIX) 20 mg tablet Take 1 tablet (20 mg total) by mouth daily. 30 tablet 8 Active ALPRAZolam (XANAX) 1 mg tablet 5 8 Active acetaminophen 500 mg capsule Take 2 capsules (1,000 mg total) by mouth every 8 (eight) hours 30 tablet 0 Active cyclobenzaprine (FLEXERIL) 10 mg tablet Take 1 tablet (10 mg total) by mouth 3 (three) times a day as needed for muscle spasms 0 Active aspirin 325 mg tabletIndication s:prevention of thrombosis Take 1 tablet (325 mg total) by mouth 2 (two) times a day for 14 [address] (NexIUM) 40 mg capsuleIndicatio ns:Stress Ulcer Prophylaxis Take 1 capsule (40 mg total) by mouth daily before breakfast for 14 days 30 capsule 11 0 Active Active Problems Problem Noted Date Diagnosed Date Primary osteoarthritis of right knee 11/21/2019 Sprain and strain of carpometacarpal (joint) of hand 11/21/2019 Primary localized osteoarthrosis, other specifie d sites 11/21/2019 Aseptic necrosis of other bone site 11/21/2019 Avascular necrosis of lunate 11/21/2019 TBI (traumatic brain injury) 11/21/2019 COPD (chronic obstructive pulmonary disease) CHF (congestive heart failure) 11/21/2019 Hypothyroidism 11/21/2019 Chronic pain 11/21/2019 Anxiety 11/21/2019 Mixed hyperlipidemia 11/21/2019 GERD (gastroesophageal reflux disease) 0 Depression 11/21/2019 Displaced fracture of fifth metacarpal bone 11/01 Closed fracture of shaft of right femur 11/20/19 20 Overview (11/20/2019): Added automatically from request for surgery [id number] Seizure 04/01/2018 Fracture of first cervical vertebra with delayed healing 04/01/2018 Lumbar compression fracture 04/01/2018 Overview (04/01/2018): L6 Lamina papyracea fracture 04/01/2018 Closed fracture of left proximal humerus 018 Primary osteoarthritis, right wrist 01/10/2016 Resolved Problems Problem Noted Date Diagnosed Date Resolved Date Pain in joint, forearm 11/21/201911/20 Immunizations Immunization Administration Dates Next Due Influenza, Unspecified 06/24/2019 Social History Tobacco Use Types Packs/Day Years Used Date Smoking Tobacco: Every Day Cigarettes Smokeless Tobacco: Never Comments No Sex and Gender Information Value Date Recorded Sex Assigned at Not on file 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 Gender Identity Not on file Sexual Orientation Not on file Last Filed Vital Signs Vital Sign Reading Time Taken Comments Blood Pressure 129/60 11/24/2019 11:37 AM CDT Pulse 98 11/24/2019 11:37 AM CDT Temperature 36.4 C (97.5 F) 11/24/2019 11:37 AM CDT Respiratory Rate 20 11/24/2019 11:37 AM CDT Oxygen Saturation 95% 11/24/2019 11:37 AM CDT Inhaled Oxygen Concentration - - Weight 102.1 kg (225 lb) 11/20/2019 6:22 PM CDT Height 160 cm (5' 3 ) 11/20/2019 6:22 PM CDT Body Mass Index 39.86 11/20/2019 6:22 PM CDT Plan of Treatment Not on file Medical Devices Implanted Type Area Hyperion Developer Device Identifier Shelf Expiration Date Model / Serial / Lot Plate Plate Right: Hand [employer] [id number] Sureshot 8mm 85mm Lag Compression Kit Trochanteric Screw Bone Burroughs - [id number] Implanted:Qty: 1 on 11/21/2019 by Gal Mendoza MD at [facility] Right: Femur [employer] [id number] 12/11/2027 [id number] / / [id number] [employer] [id number] Trigen Magnolia-Burroughs 10mm 40cm Antegrade Femur Right Trochanteric Nail - [id number] Implanted:Qty: 1 on 11/21/2019 by Gal Mendoza MD at [facility] Right: Femur [employer] [id number] 02/26/2029 [id number] / / [id number] [employer] [id number] 5mm 42.5mm Low Profile Internal Hex Femur Screw Bone Trigen - [id number] Implanted:Qty: 1 on 11/21/2019 by Gal Mendoza MD at [facility] Right: Femur [employer] [id number] / / [employer]o [id number] 5mm 50mm Low Profile Internal Hex Femur Screw Bone Trigen - [id number] Implanted:Qty: 1 on 11/21/2019 by Gal Mendoza MD at [facility] Right: Femur [employer] [id number] / / Insurance MEDICARE [facility] MEDICARE [place] Advance Directives For more information, please contact: [phone] * Full Code (Latest Code Status on File) Date Activated Date Inactivated Comments 11/21/2019 12:09 AM 11/24/2019 6:32 PM * Full Code Date Activated Date Inactivated Comments 03/30/2018 10:17 PM 04/01/2018 1:00 PM Care Teams Scientific Informatics Analyst Relationship Specialty Start Date End Date Nestor Mann MD [address] [place] [address] PCP - General 03/29/10 No, Physician 11/23/19
--- OUTSIDE RECORDS SUMMARY | 2024-11-24 10:50 | XMS_ITS | Clinical Summary ---
Author Organization [facility] [place] [address] Address [address] [place] [address] Care Team Providers Care Clinical Liaison Name Role Phone Nestor Mann MD Primary [...] (11/20/2019): Added automatically from request for surgery [id number] Seizure 04/01/2018 Fracture of first cervical vertebra with delayed healing 04/01/2018 Lumbar compression fracture 04/01/2018 Overview (04/01/2018): L6 Lamina papyracea fracture 04/01/2018 Closed fracture of left proximal humerus 018 Primary osteoarthritis, right wrist 01/10/2016 Resolved Problems Problem Noted Date Diagnosed Date Resolved Date Pain in joint, forearm 11/21/201911/20 Immunizations Immunization Administration Dates Next Due Influenza, Unspecified 06/24/2019 Medical History Medical History Date Comments Seizures (HCC) TBI (traumatic brain injury) (HCC) CHF (congestive heart failure) (HCC) LESTER (obstructive sleep apnea) COPD (chronic obstructive pulmonary disease) (HC C) GERD (gastroesophageal reflux disease) Depression Anxiety Hypothyroidism Hyperlipidemia Social History Tobacco Use Types Packs/Day Years Used Date Smoking Tobacco: Every Day Cigarettes Smokeless Tobacco: Never Comments No Sex and Gender Information Value Date Recorded Sex Assigned at Not on file Legal Sex Female 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 Gender Identity Not on file Sexual Orientation Not on file Obstetrics History Last Filed Vital Signs Vital Sign Reading [...] on file Medical Devices Implanted Type Area Director Of National Sales Device Identifier Shelf Expiration Date Model / Serial / Lot Plate Plate Right: Hand [employer]o [id number] Sureshot 8mm 85mm Lag Compression Kit Trochanteric Screw Bone Burroughs - [id number] Implanted:Qty: 1 on 11/21/2019 by Gal Mendoza MD at [facility] Right: Femur [employer]o [id number] 12/11/2027 [id number] / / [id number] [employer] [id number] Trigen Rittman-Burroughs 10mm 40cm Antegrade Femur Right Trochanteric Nail - [id number] Implanted:Qty: 1 on 11/21/2019 by Gal Mendoza MD at [facility] Right: Femur [employer]o [id number] 02/26/2029 [id number] / / [id number] [employer] [id number] 5mm 42.5mm Low Profile Internal Hex Femur Screw Bone Trigen - [id number] Implanted:Qty: 1 on 11/21/2019 by Gal Mendoza MD at [facility] Right: Femur [employer]o [id number] / / [employer] r[employer]o [id number] 5mm 50mm Low Profile Internal Hex Femur Screw Bone Trigen - [id number] Implanted:Qty: 1 on 11/21/2019 by Gal Mendoza MD at [facility] Right: Femur [employer]o [id number] / / Insurance MEDICARE [facility] MEDICARE [employer] Advance Directives For more information, please contact: [phone] * Full Code (Latest Code Status on File) Date Activated Date Inactivated Comments 11/21/2019 12:09 AM 11/24/2019 6:32 PM * Full Code Date Activated Date Inactivated Comments 03/30/2018 10:17 PM 04/01/2018 1:00 PM Care Teams Clinical Liaison Relationship Specialty Start Date End Date Nestor Mann MD [address] [place] [address] PCP - General 03/29/10 No, Physician 11/23/19
--- OUTSIDE RECORDS SUMMARY | 2024-11-24 10:50 | XMS_ITS | Encounter Summary ---
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 us Historical Provider Final Res ult documented in this encounter Visit Diagnoses Not on filedocumented in this encounter Care Teams Evening Or Night Nurse Supervisor Relationship Specialty Start Date End Date Nestor Mann MD [address] [place] [address] PCP - General 03/29/10 No, Physician 11/23/19 documented as of this encounter
--- OUTSIDE RECORDS SUMMARY | 2024-11-24 10:50 | XMS_ITS | Clinical Summary ---
Author Organization 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 Gender Identity Not on file Sexual Orientation Not on file Plan of Treatment Health Maintenance Due Date Last Done Comments DEXA Bone Density 1960 Hepatitis C Virus (HCV) Screening 1960 TdaP Immunization 1960 Pap Smear 1979 Cervical Cancer Screening (CCS) 1988 HPV/Cotest 1988 Colonoscopy 2003 Colorectal Cancer Screening 2003 Cologuard 2008 Immunochemical Fecal Occult Blood 2008 Mammogram 2008 Pneumococcal Immunization (5 0+ years) (1 of 1 - PCV) 2008 Zoster Immunization (1 of 2) 2008 Influenza Immunization (#1) 2024 06/30/2021 SARS-COV-2 Immunization ( season) 2024 08/10/2021, 12/30/2020, 12/02/2020 Respiratory Syncytial Virus (RSV) Immunization (Adult) (1 - 1-dose 75+ series) 2033 Hepatitis B Immunization Aged Out No longer eligible based on patient's age to complete this topic Meningococcal Immunization (ACWY) Aged Out No longer eligible b ased on patient's age to complete this topic Rotavirus Immunization Aged Out No lo nger eligible based on patient's age to complete this topic
--- OUTSIDE RECORDS SUMMARY | 2024-11-24 10:50 | XMS_ITS | Clinical Summary ---
Author Organization [facility] Address [address] [place] [address] Care Team Providers Care Estimator And Drafter Name Role Phone Nestor Mann MD Unavailable [phone] Nestor Mann MD Primary Care Provider [phone] Allergies Active Allergy Reactions Criticality Noted Date Comments Iodine Anaphylaxis High 11/28/2022 Paralyzes me Iodinated Contrast Media Unknown 03/30/2018 Penicillins Unknown 03/30/2018 Medications alendronate (FOSAMAX) 70 MG tablet Take 1 tablet (70 mg total) by mouth once a week. Active levETIRAcetam (KEPPRA) 500 MG tablet Take 1 tablet (500 mg total) by mouth 2 (two) times daily. Active gabapentin (NEURONTIN) 600 MG tablet Take 1 tablet (600 mg total) by mouth 2 (two) times a day. Active ALPRAZolam 1 MG TABLET DISPERSIBLE disintegrating tablet Take 1 tablet (1 mg total) by mouth 4 (four) times daily as needed for Anxiety. Active umeclidinium-vilan terol (ANORO ELLIPTA) 62.5-25 MCG/ACT inhaler Inhale 1 puff into the lungs. Active metoclopramide (REGLAN) 10 MG tablet Take 1 tablet (10 mg total) by mouth nightly at bedtime. Active Vitamin D3 (CHOLECALCIFEROL) 50 mcg tablet Take 1 tablet (50 mcg total) by mouth daily. Active GARLIC 1500 OR Take 1 capsule by mouth daily. Active Docusate Sodium (STOOL SOFTENER OR) Take 1 capsule by mouth daily. Active ondansetron (ZOFRAN-ODT) 4 MG disintegrating tablet Take 1 tablet (4 mg total) by mouth every 8 (eight) hours as needed for Nausea. Active furosemide (LASIX) 40 MG tablet Take 1 tablet (40 mg total) by mouth daily. Active magnesium oxide (MAG-OX) 250 MG tablet Take 1 tablet (250 mg total) by mouth daily. Active pantoprazole EC (PROTONIX) 40 MG tablet Take 1 tablet (40 mg total) by mouth 2 (two) times a day. Active levothyroxine (SYNTHROID) 150 MCG tablet Take 1 tablet (150 mcg total) by mouth every morning. Active amitriptyline (ELAVIL) 25 MG tablet Take 1 tablet (25 mg total) by mouth nightly at bedtime. 11/16/19 23 Active calcitonin (MIACALCIN) 200 UNIT/ACT nasal spray USE 1 SPRAY INTO ONE NOSTREIL (ALTERNATE) ONCE DAILY 10/11/19 Active senna-docusate (SENOKOT-S) 8.6-50 MG tablet Take 1 tablet by mouth nightly as needed for Constipation (May repeat X 1 if no BM or discomfort). 60 tablet 12/17/19 23 Active diazePAM (VALIUM) 5 MG tabletIndications: Lumbar compression fracture, closed, initial encounter ([facility]) Take 1 tablet (5 mg total) by mouth every 6 (six) hours as needed for Muscle Spasms. 20 tablet 12/22/19 23 Active ferrous sulfate, 65 mg elemental, 325 (65 FE) MG tablet Take 1 tablet (325 mg total) by mouth daily with breakfast. 30 tablet 12/23/19 23 Active potassium chloride CR (KLOR-CON M) 20 MEQ tablet Take 1 tablet (20 mEq total) by mouth daily. 30 tablet 12/22/19 23 Active Active Problems Problem Noted Date Diagnosed Date Lumbar compression fracture, closed, initial encounter ([facility]) 12/11/2022 Family History Medical History Relation Comments Heart Father Hypertension Mother Stroke Mother Relation Status Comments Father Mother Social History Tobacco Use Types Packs/Day Years Used Date Smoking Tobacco: Every Day Cigarettes Smokeless Tobacco: Never Tobacco Cessation:Ready to Q uit: Not Asked; Counseling Given: Not Answered Alcohol Use Standard Drinks/Week Comments Not Currently 0 (1 standard drink = 0.6 oz pur e alcohol) Humiliation, Afraid, Rape, and Kick questionnair e Answer Date Recorded Within the last year, have y ou been afraid of your partner or ex-partner? No 12/11/2022 Within the last year, have y ou been humiliated or emotionally abused in other ways by your partner or ex-partner? No Within the last year, have y ou been kicked, hit, slapped, or otherwise physically hurt by your partner or ex-partner? No 12/11/2022 Within the last year, have y ou been raped or forced to have any kind of sexual activity by your partner or ex-partner? No 12/11/2022 Overall Financial Resource Strain (CARDIA) Answe r Date Recorded How hard is it for you to pa y for the very basics like food, housing, medical care, and heating? Not hard at all 12/11/2022 [facility] - Occupational Stress Questionnaire Answer Date Recorded Do you feel stress - tense, restless, nervous, or anxious, or unable to sleep at night because your mind is troubled all the time - these days? Not at all 12/11/2022 Exercise Vital Sign Answer Date Recorde d On average, how many days pe r week do you engage in moderate to strenuous exercise (like a brisk walk)? 0 days 12/11/2022 On average, how many minutes do you engage in exercise at this level? 0 min 12/11/2022 Hunger Vital Sign Answer Date Recorded Within the past 12 months, y ou worried that your food would run out before you got the money to buy more. Never true 12/12/19 23 Within the past 12 months, t he food you bought just didn't last and you didn't have money to get more. Never true 12/11/2022 PRAPARE - Transportation Answer Date Re corded In the past 12 months, has l ack of transportation kept you from medical appointments or from getting medications? No 12/01 In the past 12 months, has l ack of transportation kept you from meetings, work, or from getting things needed for daily living? No 12/11/2022 Housing Stability Vital Sign Answer Ernesto e Recorded In the last 12 months, was t here a time when you were not able to pay the mortgage or rent on time? No 12/11/2022 In the last 12 months, how many places have you lived? 1 12/11/2022 In the last 12 months, was t here a time when you did not have a steady place to sleep or slept in a penitentiary (including now)? No 12/11/2022 Comments No Sex and Gender Information Value Date Recorded Sex Assigned at Not on file Legal Sex Female 8:21 AM CDT Gender Identity Not on file Sexual Orientation Not on file Last Filed Vital Signs Vital Sign Reading Time Taken Comments Blood Pressure 110/48 12/21/2022 7:17 AM CDT 2nd time I took it Pulse 57 12/21/2022 7:16 AM CDT Temperature 37.1 C (98.8 F) 12/21/2022 7:16 AM CDT Respiratory Rate 18 12/21/2022 7:16 AM CDT Oxygen Saturation 96% 12/21/2022 7:1 6 AM CDT Inhaled Oxygen Concentration - - Weight 69.4 kg (153 lb) 12/21/2022 5:22 AM CDT Height 156.2 cm (5' 1.5 ) 12/16/2022 6: 30 PM CDT Body Mass Index 28.44 12/16/2022 6:30 PM CDT Plan of Treatment Health Maintenance Due Date Last Done Comments Colorectal Cancer Screening Colonoscopy (10 Years) 1958 Pneumococcal Vaccine: 65+ Years (1 of 2 - PCV) 1964 Hepatitis C 1976 DTaP, Tdap and Td Vaccines ( 1 - Tdap) 1977 Mammogram Screening 1998 Zoster Vaccines (1 of 2) 2008 Annual Medicare Wellness Visit 2023 Dexa Scan (General) 2023 COVID-19 Vaccine (4 - 2023-2 5 season) 2024 08/10/2021, 12/30/2020, 12/02/2020 Influenza Adult (#1) 2024 06/28/2022, 06/30/2021, 06/24/2019 RSV Immunization or 60+ Years (1 - 1-dose 75+ series) 2033 Meningococcal B Vaccine Aged Out No l onger eligible based on patient's age to complete this topic Meningococcal Vaccine Aged Out No brandon ashli eligible based on patient's age to complete this topic RSV Immunizations Under 20 Months Aged Out No longer eligible b ased on patient's age to complete this topic Goals Goal Patient Goal Type Associated Problems Recent Progress Patient-Stated? Author Family - family caregiver with be involved in care transitions and discharge planning Lifestyle No Cy Martinez, RN Medical Devices Implanted Type Area Refrigerator Mover Device Identifier Shelf Expiration Date Model / Serial / Lot Graft Bone I Factor 5cc Allograft Putty Syringe - [id number] Implanted:Qty: 1 on 12/11/2022 by Stephanie Marinelli MD at [facility] Bone N/A: Spine Lumbar [employer] [id number] 03/01/2025 [id number] / / [id number] Graft Bone Allosource Canc Crushed Fd 15ml - [id number] Implanted:Qty: 1 on 12/11/2022 by Stephanie Marinelli MD at [facility] Bone N/A: Spine Lumbar [employer] [id number] 03/05/2027 [id number] / / [id number] Orthofix 140mm Mookie Implanted:Qty: 2 on 12/11/2022 by Stephanie Marinelli MD at [facility] Mookie N/A: Spine Lumbar ORTHOFIX [id number] / / Orthofix Set Screw Implanted:Qty: 10 on 12/11/2022 by Stephanie Marinelli MD at [facility] Screw N/A: Spine Lumbar ORTHOFIX 36-2001 / / Orthofix 4.5x45mm Screw Implanted:Qty: 4 on 12/11/2022 by Stephanie Marinelli MD at [facility] Screw N/A: Spine Lumbar ORTHOFIX [id number] / / Orthofix 5.5x45mm Screw Implanted:Qty: 4 on 12/11/2022 by Stephanie Marinelli MD at [facility] Screw N/A: Spine Lumbar ORTHOFIX [id number] / / Orthofix 6.5x45mm Screw Implanted:Qty: 2 on 12/11/2022 by Stephanie Marinelli MD at [facility] Screw N/A: Spine Lumbar ORTHOFIX [id number] / / Orthofix Body, Top Loading Implanted:Qty: 10 on 12/11/2022 by Stephanie Marinelli MD at [facility] N/A: Spine Lumbar ORTHOFIX [id number] / / Orthofix 6.5mm X 40mm Screw Implanted:Qty: 1 on 12/11/2022 by Stephanie Marinelli MD at [facility] N/A: Spine Lumbar ORTHOFIX [id number] / / Insurance MEDICAID MEDICARE Advance Directives Documents on File Type Date Recorded Patient Gta Expl anation Advance Directives and Living Will 12/24/2022 11:00 AM 12/11/2022 [place]A FOR HEALTH CARE Power of Dial Mounter 12/11/2022 1:58 PM * Full Code (Latest Code Status on File) Date Activated Date Inactivated Comments 12/16/2022 6:26 PM 12/21/2022 4:19 PM * Full Code Date Activated Date Inactivated Comments 12/11/2022 4:40 PM 12/16/2022 6:19 PM Care Teams Estimator And Drafter Relationship Specialty Start Date End Date Nestor Mann MD [address] [address] PCP - General FAMILY PRACTICE 12/11/22 Nestor Mann MD [address] [address] FAMILY PRACTICE 11/28/22
--- OUTSIDE RECORDS SUMMARY | 2024-11-24 10:50 | XMS_ITS | Encounter Summary ---
Author Organization [facility] Address [address] [place] [address] Phone Care Team Providers Care Programming Director Name Role Phone Nestor Mann MD Primary Care Prov ider No, Physician Unavailable Encounter Details Date Type Department Care Team (Late st Contact Info) Description 03/31/2018 Ophth Exam [facility] Ophthalmology [address] [place] [address] 1st [place] [address] Munira Harry MD PhD [address] [place] [address] Social History Tobacco Use Types Packs/Day Years Used Date Smoking Tobacco: Never Smokeless Tobacco: Never Comments No Sex and Gender Information Value Date Recorded Sex Assigned at Not on file 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 Gender Identity Not on file Sexual Orientation Not on file documented as of this encounter Plan of Treatment Not on file documented as of this encounter Visit Diagnoses Not on filedocumented in this encounter Eye Exam Visual Acuity (Near card) Right eye Left eye Near cc 20/20 20/20 Correction: Glasses Tonometry (Tonopen, 12:17 PM) Right eye Left eye Pressure 13 13 Pupils Pupils Dark Light Shape React APD Right eye PERRL 4 3 Round Brisk None Left eye PERRL 4 3 Round Brisk None Visual Isabel Right eye Left eye Full Full Extraocular Movement Right eye Left eye Full, Ortho Full, Ortho Neuro/Psych Oriented x3: Yes Mood/Affect: Normal Dilation Both eyes: 1.0% Mydriacyl, 2 .5% Phenylephrine, 1.0% Cyclogyl @ 12:28 PM External Exam Right eye Left eye External Normal mild ecchymosis in eyelids. No proptosis Slit Lamp Exam Right eye Left eye Lids/Lashes Normal mild ecchymosis in eyelids Conjunctiva/Sclera White and quiet mild injectio n, with small patch ALEX in temporal area Cornea Clear Clear Anterior Chamber Deep and quiet Deep and quiet Iris Round and reactive Round and corky ctive Lens PCIOL clear and in place PCIOL c lear and in place Vitreous Normal Normal Fundus Exam Right eye Left eye Disc Normal Normal C/D Ratio 0.2 0.2 Macula Normal Normal Vessels Normal Normal Periphery Normal Normal Care Teams Programming Director Relationship Specialty Start Date End Date Nestor Mann MD [address] [place] [address] PCP - General 03/29/10 No, Physician 11/23/19 documented as of this encounter
== END 2024-11-24 09:37 | disposition home or self-care (01) ==
LOC: ANHIMG 09:37
PROVIDERS: PCP Family Medicine Adolescent Medicine; Visit Provider Neurological Surgery
DX: M81.0 Age-related osteoporosis without current pathological fracture (principal); M85.851 Other specified disorders of bone density and structure, right thigh
CPT/HCPCS: 77080

== ENCOUNTER 2025-01-22 09:39 | Outpatient (CLI) | payer MEDICARE, MEDICAID, SELFPAY ==
--- NOTE | ~2025-01-22 | CT_ITS ---
EXAMINATION: CT thoracic lumbar wo con DATE: 01/22/2025 10:08 INDICATION: Thoracolumbar kyphosis TECHNIQUE: High resolution computed tomography (CT) of the thoracic and lumbar spine was performed wi thout intravenous contrast. Additional sagittal and coronal reconstructions were performed. Automated exposure control and iterative reconstruction technique were employed. The dose-length product was 1 656.13 mGy-cm. COMPARISON: Lumbar spine CT dated 07/29/2023 and radiographs dated 09/10/2023 and 03/11/2024 FINDINGS: Thoracic spine: 15 degrees upper thoracic levocurvature measured between T1 and T4. 9 degrees compensatory dextrocurv ature in the more caudal mid to lower thoracic spine. Sagittal alignment is normal. Chronic minimal a nterior wedging at T7, T8 and T12. Multilevel mild thoracic disc height loss with small anterior endp late osteophytes in the mid to lower thoracic spine. There is severe facet osteoarthritis on the righ t at T2-T3 and T3-T4 and moderate facet osteoarthritis on the right at T4-T5 and bilaterally at T10-T 11 on the left at T11-T12. Otherwise mild multilevel thoracic facet osteoarthritis. There is mild archana ral foraminal stenosis on the right at T1-2 through T3-T4. No central canal stenosis. Moderate-sized sliding-type hiatal hernia. There are fat and fluid in the mid to distal esophagus suggesting refluxe d partially digested material. Calcified right lower lobe nodule consistent with old granulomatous di sease. There are several chronic nonunited posterior fractures of the right 4th-10th ribs. Additional old healed fracture of the right 12th rib. Lumbar spine: Unchanged 10 degrees levocurvature. 3 mm anterolisthesis L4 on L5. Again seen are chronic L1 and L3 b urst fractures and chronic L5 superior endplate compression fracture. L1 burst fracture demonstrates 80% anterior vertebral body height loss and 2 mm retropulsion. The L3 burst fracture demonstrates a s mall region with complete central vertebral body height loss approximately 40% vertebral body height loss both anteriorly and posteriorly. There is 8 mm retropulsion. At L5 there is 40% vertebral body h eight loss slightly anterior to central vertebral body height loss. There are also chronic bilateral L5 pars interarticularis defects. There has been prior L3 laminectomy and partial L2 laminectomy. L1-S1 instrumented posterior spinal f usion with bilateral vertical rods and pedicle screws at each level with the exception of L3. There i s increased lucency consistent with loosening surrounding the screws at both L1 and S1. Minimal incre ased lucency about the right L5 screw. The screw tips at L1 also project beyond the cephalad margin o f the L1 vertebral body and into the moderately narrowed T12-L1 disc space with some surrounding vacu um phenomena. There additional severe disc height loss with vacuum phenomena at L5-S1. There is mild to moderate right-sided predominant disc height loss at L4-L5. Remaining lumbar disc heights are norm al to slightly increased due to the endplate depressions related to the previous noted fractures. The following disc levels are specifically discussed: L1-L2: The disc does not extend beyond the endplate margin. There is mild bilateral facet joint hyper trophy. There is no neural foraminal stenosis. There is no central canal stenosis. L2-L3: The disc does not extend beyond the endplate margin. There is no facet joint hypertrophy. Ther e is mild bilateral neural foraminal stenosis. There is moderate central canal stenosis with posterio r decompression. L3-L4: The disc does not extend beyond the retropulsed L3 inferior endplate margin. There is severe r ight and moderate left facet joint osteoarthritis. There is mild left and mild to moderate right neur al foraminal stenosis. There is mild central canal stenosis with posterior decompression. L4-L5: The disc is bulging. There is severe bilateral facet joint osteoarthritis. There is mild bilateral neural foraminal stenosis. There is mild central canal stenosis. L5-S1: The disc is bulging. There is severe bilateral facet joint osteoarthritis. There is moderate b ilateral neural foraminal stenosis. There is mild central canal stenosis. IMPRESSION: 1. 15 degrees upper thoracic levocurvature with mild spondylosis. 2. No significant interval change is severe lumbar spondylosis with chronic bilateral L5 pars defects . 3. Chronic L1 and L3 burst fractures and L5 compression fracture with stable appearance of postoperat sudhakar changes including L3 laminectomy, partial L2 laminectomy and instrumented instrumented posterior fusion procedure from L1 to S1 with loosening of the bilateral pedicle screws bilaterally at L1 and S 1 and possibly loosening of the right L5 screw. 4. Moderate-sized sliding-type hiatal hernia with gastroesophageal reflux. Reviewed, dictated and finalized at location A. IMPRESSION: 1. 15 degrees upper thoracic levocurvature with mild spondylosis. 2. No significant interval change is severe lumbar spondylosis with chronic jessica ateral L5 pars defects. 3. Chronic L1 and L3 burst fractures and L5 compression fracture with stable ap pearance of postoperative changes including L3 laminectomy, partial L2 laminect evelyn and instrumented instrumented posterior fusion procedure from L1 to S1 with loosening of the bilateral pedicle screws bilaterally at L1 and S1 and possibl y loosening of the right L5 screw. 4. Moderate-sized sliding-type hiatal hernia with gastroesophageal reflux.
--- NOTE | ~2025-01-22 | XR_ITS ---
Lumbosacral Spine: AP and lateral views Clinical History: Arthrodesis COMPARISON: 03/11/2024 Findings: Stable posterior fusion hardware extending from L1 through S1, bilateral rods and transpedi cular screws present. Stable severe compression fractures of L1 and L3. The L1 transpedicular screws appear to penetrate into the T12-L1 disc space, unchanged, possibly as a result of the loss of height of the L1 vertebral body. Stable alignment from prior exam. Stable grade 1 retrolisthesis of L3 over L4. Stable degenerative disc changes. The sacroiliac joints are normally outlined. Impression: No significant interval change from prior exam. Stable osseous and orthopedic hardware alignment. Pos terior fusion hardware from L1 through S1. Stable underlying compression fracture deformities of L1 and L3. Stable underlying degenerative spondylosis. Reviewed, dictated and finalized at [facility]. Impression: No significant interval change from prior exam. Stable osseous and orthopedic h ardware alignment. Posterior fusion hardware from L1 through S1. Stable underlying compression fracture deformities of L1 and L3. Stable underlying degenerative spondylosis.
--- NOTE | ~2025-01-22 | XR_ITS ---
Thoracic spine: Clinical Indication: Kyphosis AP and lateral views were performed. No fracture is seen. There is normal alignment of the vertebrae. There is multilevel mild to moderat e degenerative change in the thoracic spine. Paravertebral soft tissues appear normal. Impression: Multilevel mild to moderate degenerative disc change in the thoracic spine. Reviewed, dictated and finalized at location . Impression: Multilevel mild to moderate degenerative disc change in the thoracic spine.
--- OUTSIDE RECORDS SUMMARY | 2025-01-22 09:44 | XMS_ITS ---
Author Name Auto Generated, Auto Generated Organization [employer] [facility] Address [address] [place] [address] Phone [phone] Care Team Providers Care Packager And Strapper Name Role Phone Abiodun Tatum Matthieu Unavailable Nestor Mann Unavailable [phone] Stephanie Luz Unavailable Functional Status No Results Mental Status No Results Allergies and Intolerances Name Onset Date Reaction Severity penicillin (Allergy) SatNov 23 18:36:00 EDT 202 0 IV Contrast (Allergy) SatNov 23 18:35:00 EDT 20 20 Medications Medication Directions Start Date End Date Xanax 1 mg tablet 1 tab TABLET Oral LA N 3 Times Daily SatNov 24 04:00:00 EDT 2019Nov 24 01:00:00 EDT 2019 Xanax 1 mg tablet 1 tab TABLET Oral LA N 3 Times Daily anxiety SatNov 24 01:00:00 EDT 2019Nov 24 01:00:00 EDT 2019 ProAir HFA 90 mcg/actuation aerosol inhaler 2 puffs HFA AEROSOL WITH ADAPTER (GRAM) Inhalation PRN Every 6 Hours Wheezing SatNov 23 18:00:00 ED2019Nov 24 01:00:00 EDT 2019 alendronate 70 mg tablet 70mg TABLET Ora l 1 Time Weekly Take in AM with full glass of water, on an empty stomach, do not take anything else by mouth or lie down for the next 30 minutes. SatNov 23 18:00:00 EDT 2019Nov 24:00:00 ED2019 amLODIPine 5 mg tablet 5mg TABLET Oral 1 Time Daily HTN SatNov 23 18:00:00 EDT 2019Nov 24 01:00:00 ED2019 aspirin 325 mg tablet 325mg TABLET Oral 2 Times Daily for 14 Days DVT proph SatNov 23 18:00:2019Nov 24::2019 Vitamin D3 50 mcg (2,000 unit) capsule 2,000 Unit CAPSULE Oral 1 Time Daily Supplement SatNov 232019Nov 24:2019 cyclobenzaprine 10 mg tablet 10mg TABLET Oral PRN 3 Times Daily Muscle Spasms SatNov 23:2019Nov 24::2019 diclofenac sodium 75 mg tablet,delayed release 75mg TABLET, DELAYED RELEASE (ENTERIC COATED) Oral 2 Times Daily Pain SatNov 23:2019Nov 24::2019 docusate sodium 100 mg capsule 100mg CAPSULE Oral 1 Time Daily Constipation SatNov 232019Nov 24::2019 ergocalciferol (vitamin D2) 1,250 mcg (50,000 unit) capsule 50,000 Unit CAPSULE Oral 1 Time Weekly for 5 Weeks Supplement SatNov 29:2019Nov 24:2019 NexIUM 40 mg capsule,delayed release 40mg CAPSULE,DELAYED RELEASE (ENTERIC COATED) Oral 1 Time Daily for 14 Days GERD SatNov 23::2019Nov 24:2019 Flovent Diskus 100 mcg/actuation powder for inhalation 2 puffs BLISTER, WITH INHALATION DEVICE Inhalation 2 Times Daily COPD; rinse mouth with water after use to reduce aftertaste and incidence of candidiasis. Do not swallow. SatNov 23::2019Nov 24:2019 furosemide 20 mg tablet 20mg TABLET Oral 1 Time Daily CHF SatNov 23::2019Nov 24::2019 gabapentin 600 mg tablet 600mg TABLET Or al 4 Times Daily Neuropathy SatNov 23::2019Nov 24::2019 levETIRAcetam 500 mg tablet 1,500mg TABL ET Oral 2 Times Daily Seizures SatNov 23:00:2019Nov 24::2019 oxyCODONE 5 mg tablet 5mg TABLET Oral LA N Every 4 Hours Pain SatNov 23::00 EDT 2019Nov 24 01:00:00 EDT 2019 simvastatin 20 mg tablet 20mg TABLET Ora l 1 Time Daily High Cholesterol SatNov 23 17:00:00 EDT 2019Nov 24 01:00:00 2019 Topamax 200 mg tablet 200mg TABLET Oral 1 Time Daily Seizures SatNov 23 19:00:00 EDT 2019Nov 24 01:00:00 EDT 2019 TUBErsoL 5 tub. unit/0.1 mL intradermal injection solution 0.1 ml VIAL (ML) Intradermal 1 Time Weekly for 2 Weeks (PPD) 1st injection upon admission. Read between 48 and 72 hours and give 2nd injection 1 week after the 1st if result is negative. If positive result, proceed with chest x-ray to rule out active disease. SatNov 24 07:00:00 EDT 2019Nov 24 01:00:00 2019 TUBErsoL 5 tub. unit/0.1 mL intradermal injection solution Read Results VIAL (ML) Other 1 Time Weekly for 2 Weeks Read results between 48-72 hours after 1st and 2nd 1 week apart. If positive do chest x-ray to rule out active disease. SatNov 26 07:00:00 EDT 2019Nov 24 01:00:00 EDT 2019 Acetaminophen Extra Strength 500 mg tablet 1000mg TABLET Oral Every 8 Hours Pain SatNov 23 21:00:00 EDT 2019Nov 24 01:00:00 EDT 2019 Hagaman 5 mg-325 mg tablet 1 tablet TABLET Oral 1 Time Daily for 1 Day pain SatNov 23 20:00:00 EDT 2019Nov 24 01:00:00 EDT 2019 Problems Active Concerns * Unspecified fracture of shaft of right femur, subsequent encounter for closed fracture with [facility]* Code: * Start Date: SatNov 23 00:00:00 EDT 2019 * End Date: * Text: * Presence of other bone and tendon implants* Code: * Start Date: SatNov 23 00:00:00 ED2019 * End Date: * Text: * Other fracture of fifth metacarpal bone, right hand, subsequent encounter for fracture with [facility]* Code: * Start Date: SatNov 23 00:00:00 EDT 2019 * End Date: * Text: * Chronic pain syndrome* Code: * Start Date: SatNov 23 00:00:00 EDT 2020 * End Date: * Text: * Age-related osteoporosis without current pathological fracture* Code: * Start Date: SatNov 23 00:00:00 EDT 2019 * End Date: * Text: * Generalized anxiety disorder* Code: * Start Date: SatNov 23 00:00:00 EDT 2019 * End Date: * Text: * Major depressive disorder, single episode, unspecified* Code: * Start Date: SatNov 23 00:00:00 EDT 2019 * End Date: * Text: * Post traumatic seizures* Code: * Start Date: SatNov 23 00:00:00 EDT 2019 * End Date: * Text: * Hypertensive heart disease with heart failure* Code: * Start Date: SatNov 23 00:00:00 EDT 2019 * End Date: * Text: * Heart failure, unspecified* Code: * Start Date: SatNov 23 00:00:00 EDT 2019 * End Date: * Text: * Mixed hyperlipidemia* Code: * Start Date: SatNov 23 00:00:00 EDT 2019 * End Date: * Text: * Chronic obstructive pulmonary disease, unspecified* Code: * Start Date: SatNov 23 00:00:00 EDT 2019 * End Date: * Text: * Nicotine dependence, unspecified, uncomplicated* Code: * Start Date: SatNov 23 00:00:00 EDT 2019 * End Date: * Text: * Hypothyroidism, unspecified* Code: * Start Date: SatNov 23 00:00:00 EDT 2019 * End Date: * Text: * Adverse effect of other opioids, subsequent encounter* Code: * Start Date: SatNov 23 00:00:00 EDT 2019 * End Date: * Text: * Slow transit constipation* Code: * Start Date: SatNov 23 00:00:00 EDT 2019 * End Date: * Text: * Collapsed vertebra, not elsewhere classified, lumbar region, sequela of fracture* Code: * Start Date: SatNov 23 00:00:00 EDT 2019 * End Date: * Text: * Personal history of traumatic brain injury* Code: * Start Date: SatNov 23 00:00:00 EDT 2019 * End Date: * Text: * Obesity, unspecified* Code: * Start Date: SatNov 23 00:00:00 EDT 2019 * End Date: * Text: Reason for Referral Past Medical History
--- OUTSIDE RECORDS SUMMARY | 2025-01-22 09:44 | XMS_ITS ---
Author Name Auto Generated, Auto Generated Organization [facility] Address [address] [place] [address] Phone [phone] Care Team Providers Care Health Care Administrator Name Role Phone Abiodun Tatum Unavailable [phone] Nestor Mann Unavailable [phone] Stephanie Luz Unavailable Functional Status Mental Status Allergies and Intolerances Medications Problems Reason for Referral Past Medical History
--- OUTSIDE RECORDS SUMMARY | 2025-01-22 09:44 | XMS_ITS | Clinical Summary ---
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
== END 2025-01-22 09:40 | disposition home or self-care (01) ==
PROVIDERS: PCP Family Medicine Adolescent Medicine; Visit Provider Neurological Surgery
DX: M41.86 Other forms of scoliosis, lumbar region (principal); M47.814 Spondylosis without myelopathy or radiculopathy, thoracic region; M41.84 Other forms of scoliosis, thoracic region; M43.16 Spondylolisthesis, lumbar region; M47.816 Spondylosis without myelopathy or radiculopathy, lumbar region; S32.011A Stable burst fracture of first lumbar vertebra, initial encounter for closed fracture; S32.031A Stable burst fracture of third lumbar vertebra, initial encounter for closed fracture; S32.050A Wedge compression fracture of fifth lumbar vertebra, initial encounter for closed fracture; X58.XXXA Exposure to other specified factors, initial encounter; T84.296A Other mechanical complication of internal fixation device of vertebrae, initial encounter; K44.9 Diaphragmatic hernia without obstruction or gangrene; Z98.1 Arthrodesis status
CPT/HCPCS: 72072; 72100; 72128; 72131

== ENCOUNTER 2025-03-24 17:45 | Inpatient (IN) | payer MEDICARE, MEDICAID, SELFPAY ==
--- NOTE | ~2025-03-24 | US_ITS ---
EXAMINATION: US venous doppler [facility] DATE: 03/24/2025 18:19 INDICATION: Left lower limb pain, swelling and erythema. TECHNIQUE: Grayscale ultrasound images without and with compression and Doppler ultrasound images of the left lower extremity veins were obtained. COMPARISON: None. FINDINGS: The visualized portions of left common femoral vein, profunda (deep) femoral vein, femoral vein, popl iteal vein, peroneal veins, posterior tibial veins, gastrocnemius vein and greater saphenous vein out flow are patent. IMPRESSION: 1. No deep venous thrombosis in the left lower limb. Reviewed, dictated and finalized at location A.
--- NOTE | ~2025-03-24 | XR_ITS ---
EXAMINATION: XR chest 1V portable 03/25/2025 02:07 INDICATION: Wheezing PROCEDURE: AP portable chest COMPARISON: Comparison to multiple prior studies sequentially, with oldest reviewed study dated 03/17. FINDINGS: The lungs are clear. The cardiomediastinal silhouette is within normal limits. There are no pleural effusions. There is no pneumothorax suspected. IMPRESSION: 1: NO ACUTE CARDIOPULMONARY DISEASE. Reviewed, dictated and finalized at location A.
[2025-03-24 17:46] VITALS: BP 125/71; PULSE 94; RESP 16; TEMP 36.5; O2SAT 93
--- OUTSIDE RECORDS SUMMARY | 2025-03-24 17:48 | XMS_ITS | Clinical Summary ---
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 Gender Identity Not on file Sexual Orientation [...] 6:22 PM CDT Height 160 cm (5' 3) 11/20/2019 6:22 PM CDT Body Mass Index 39.86 11/20/2019 6:22 PM CDT Plan of Treatment Not on file Medical Devices Implanted Type Area Market Survey Representative Device Identifier Shelf Expiration Date Model / Serial / Lot Plate Plate Right: Hand [employer] r[employer]o [id number] Sureshot 8mm 85mm Lag Compression Kit Trochanteric Screw Bone Burroughs - [id number] Implanted:Qty: 1 on 11/21/2019 by Gal Mendoza MD at [facility] Right: Femur [employer]O rtho [id number] 12/11/2027 [id number] / / [id number] [employer]Richco/O rtho [id number] Trigen [place]-Burroughs 10mm 40cm Antegrade Femur Right Trochanteric Nail - [id number] Implanted:Qty: 1 on 11/21/2019 by Gal Mendoza MD at [facility] Right: Femur [employer]/O rtho [id number] 02/26/2029 [id number] / / [id number] [employer]/O rtho [id number] 5mm 42.5mm Low Profile Internal Hex Femur Screw Bone Trigen - [id number] Implanted:Qty: 1 on 11/21/2019 by Gal Mendoza MD at [facility] Right: Femur [employer]Rich[employer]/O rtho [id number] / / [employer]hew/Richco/O rtho [id number] 5mm 50mm Low Profile Internal Hex Femur Screw Bone Trigen - [id number] Implanted:Qty: 1 on 11/21/2019 by Gal Mendoza MD at [facility] Right: Femur [employer]/O rtho [id number] / / Insurance MEDICARE [facility] MEDICARE [place] Advance Directives For more information, please contact: [phone] * Full Code (Latest Code Status on File) Date Activated Date Inactivated Comments 11/21/2019 12:09 AM 11/24/2019 6:32 PM * Full Code Date Activated Date Inactivated Comments 03/30/2018 10:17 PM 04/01/2018 1:00 PM Care Teams Learning Support Teacher Relationship Specialty Start Date End Date Nestor Mann MD [address] [place] [address] PCP - General 03/29/10 No, Physician 11/23/19
--- OUTSIDE RECORDS SUMMARY | 2025-03-24 17:48 | XMS_ITS | Encounter Summary ---
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
--- OUTSIDE RECORDS SUMMARY | 2025-03-24 17:48 | XMS_ITS | Clinical Summary ---
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
--- OUTSIDE RECORDS SUMMARY | 2025-03-24 17:48 | XMS_ITS | Clinical Summary ---
Author Organization [facility] Address [address] [place] [address] Care Team Providers Care Director Of Real Estate Name Role Phone Nestor Mann MD Unavailable [phone] Nestor Mann MD Primary Care Provider [phone] Allergies Active Allergy Reactions Criticality Noted Date [...] tabletIndications: Lumbar compression fracture, closed, initial encounter ([facility]) Take 1 tablet (5 mg [...] Date Lumbar compression fracture, closed, initial encounter ([facility]) 12/11/2022 Family History Medical History [...] and heating? Not hard at all 12/11/2022 [facility] - Occupational Stress [...] place to sleep or slept in a skilled nursing (including now)? No 12/11/2022 Comments No Sex [...] 5:22 AM CDT Height 156.2 cm (5' 1.5) 12/16/2022 6: 30 PM CDT Body Mass Index 28.44 12/16/2022 6:30 PM CDT Plan of Treatment Health Maintenance Due Date Last Done Comments Colorectal Cancer Screening Colonoscopy (10 Years) 1958 Hepatitis C 1976 DTaP, Tdap and Td Vaccines ( 1 - Tdap) 1977 Pneumococcal Vaccine: 50+ Years (1 of 2 - PCV) 1977 Mammogram Screening 1998 Zoster Vaccines (1 of 2) 2008 Annual Medicare Wellness Visit 2023 Dexa Scan (General) 2023 COVID-19 Vaccine (4 - 2023-2 5 season) 2024 08/10/2021, 12/30/2020, 12/02/2020 RSV Immunization or 60+ Years (1 - [...] and discharge planning Lifestyle No Cy Martinez, JAKE Medical Devices Implanted Type Area Apparatus Engineering Technologist Device Identifier Shelf Expiration Date Model / Serial / Lot Graft Bone I Factor 5cc Allograft Putty Syringe - [id number] Implanted:Qty: 1 on 12/11/2022 by Stephanie Marinelli MD at [facility] Bone N/A: Spine Lumbar [employer] [id number] 03/01/2025 [id number] / / [id number] Graft Bone Allosource Canc Crushed Fd 15ml - [id number] Implanted:Qty: 1 on 12/11/2022 by Stephanie Marinelli MD at [facility] Bone N/A: Spine Lumbar ALLOSOURCE [id number] 03/05/2027 [id number] / / [id number] Orthofix 140mm Mookie Implanted:Qty: 2 on 12/11/2022 by Stephanie Marinelli MD at [facility] Mookie N/A: Spine Lumbar ORTHOFIX [id number] / / Orthofix Set Screw Implanted:Qty: 10 on 12/11/2022 by Stephanie Marinelli MD at [facility] Screw N/A: Spine Lumbar ORTHOFIX 36-2001 / / Orthofix 4.5x45mm Screw Implanted:Qty: 4 on 12/11/2022 by Stephanie Marinelli MD at [facility] Screw N/A: Spine Lumbar ORTHOFIX 44-5445 / / Orthofix 5.5x45mm Screw Implanted:Qty: 4 on 12/11/2022 by Stephanie Marinelli MD at [facility] Screw N/A: Spine Lumbar ORTHOFIX 44-5545 / / Orthofix 6.5x45mm Screw Implanted:Qty: 2 on 12/11/2022 by Stephanie Marinelli MD at [facility] Screw N/A: Spine Lumbar ORTHOFIX [id number] / / Orthofix Body, Top Loading Implanted:Qty: 10 on 12/11/2022 by Stephanie Marinelli MD at [facility] N/A: Spine Lumbar ORTHOFIX 36-2101 / / Orthofix 6.5mm X 40mm Screw Implanted:Qty: 1 on 12/11/2022 by Stephanie Marinelli MD at [facility] N/A: Spine Lumbar ORTHOFIX 44-5640 / / Insurance MEDICAID MEDICARE Advance Directives Documents on File Type Date Recorded Patient Career And Transition Teacher Expl anation Advance Directives and Living Will 12/24/2022 11:00 AM 12/11/2022 [place] FORM POA FOR HEALTH CARE Power of Respiratory Care Faculty 12/11/2022 1:58 PM * Full Code (Latest Code Status on File) Date Activated Date Inactivated Comments 12/16/2022 6:26 PM 12/21/2022 4:19 PM * Full Code Date Activated Date Inactivated Comments 12/11/2022 4:40 PM 12/16/2022 6:19 PM Care Teams Director Of Real Estate Relationship Specialty Start Date End Date Nestor Mann MD [address] [address] PCP - General FAMILY PRACTICE 12/11/22 Nestor Mann MD [address] [address] FAMILY PRACTICE 11/28/22
--- OUTSIDE RECORDS SUMMARY | 2025-03-24 17:48 | XMS_ITS ---
Author Name Auto Generated, Auto Generated Organization [facility] ice Address [address] [place] [address] Phone [phone] Care Team Providers Care Technical Developer Name Role Phone Abiodun Tatum Unavailable [phone] Nestor Mann Unavailable [phone] Stephanie Luz Unavailable Functional Status No Results Mental Status No Results Allergies and Intolerances Name Onset Date Reaction Severity penicillin (Allergy) SatNov 23 18:36:00 EDT 202 0 IV Contrast (Allergy) SatNov 23 18:35:00 EDT 20 20 Medications Medication Directions Start Date End Date Xanax 1 mg tablet 1 tab TABLET Oral UT N 3 Times Daily SatNov 24 04:00:00 EDT 2019Nov 24 01:00:00 EDT 2019 Xanax 1 mg tablet 1 tab TABLET Oral UT N 3 Times Daily anxiety SatNov 24 [...] oxyCODONE 5 mg tablet 5mg TABLET Oral UT N Every 4 Hours Pain SatNov 23::00 [...] 21:00:00 EDT 2019Nov 24 01:00:00 EDT 2019 Goode 5 mg-325 mg tablet 1 tablet TABLET [...]
--- OUTSIDE RECORDS SUMMARY | 2025-03-24 17:48 | XMS_ITS | Encounter Summary ---
Author Organization [facility] Address [address] [place] [address] Phone Care Team Providers Care Burr Machine Operator Name Role Phone Nestor Mann MD Primary Care Prov ider No, Physician Unavailable Encounter Details Date Type Department Care Team (Late st Contact Info) Description 03/31/2018 Ophth Exam [facility] Ophthalmology [address] [place] [address] [address] [place] [address] Munira Harry MD PhD [address] [facility] [address] [place] [address] Social History Tobacco Use Types Packs/Day Years Used Date Smoking Tobacco: Never Smokeless Tobacco: Never Comments No Sex and Gender Information Value Date Recorded Sex Assigned at Not on file 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
--- OUTSIDE RECORDS SUMMARY | 2025-03-24 17:48 | XMS_ITS | Referral Summary ---
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 Gender Identity Not on file Sexual Orientation [...] on file Medical Devices Implanted Type Area Technical Photographer Device Identifier Shelf Expiration Date Model / Serial / Lot Plate Plate Right: Hand [employer] rtho [id number] Sureshot 8mm 85mm Lag Compression Kit Trochanteric Screw Bone Burroughs - [id number] Implanted:Qty: 1 on 11/21/2019 by Gal Mendoza MD at [facility] Right: Femur [employer] rtho [id number] 12/11/2027 [id number] / / [id number] [employer] r[employer]o [id number] Trigen [place]-Burroughs 10mm 40cm Antegrade Femur Right Trochanteric Nail - [id number] Implanted:Qty: 1 on 11/21/2019 by Gal Mendoza MD at [facility] Right: Femur [employer]/O rtho [id number] 02/26/2029 [id number] / / [id number] [employer]Rich[employer]/O rtho [id number] 5mm 42.5mm Low Profile Internal Hex Femur Screw Bone Trigen - [id number] Implanted:Qty: 1 on 11/21/2019 by Gal Mendoza MD at [facility] Right: Femur [employer]/O rtho [id number] / / Sant[employer] Nephew/Richco/O rtho [id number] 5mm 50mm Low Profile Internal Hex Femur Screw Bone Trigen - [id number] Implanted:Qty: 1 on 11/21/2019 by Gal Mendoza MD at [facility] Right: Femur [employer]/O rtho [id number] / / Insurance MEDICARE [facility] MEDICARE [facility] Address: [address] [address] [place] [address] [employer]PA Advance Directives For more information, please contact: [phone] * Full Code (Latest Code Status on File) Date Activated Date Inactivated Comments 11/21/2019 12:09 AM 11/24/2019 6:32 PM * Full Code Date Activated Date Inactivated Comments 03/30/2018 10:17 PM 04/01/2018 1:00 PM Care Teams Lime Kiln Worker Helper Relationship Specialty Start Date End Date Nestor Mann MD [address] [place] [address] PCP - General 03/29/10 No, Physician 11/23/19
--- OUTSIDE RECORDS SUMMARY | 2025-03-24 17:48 | XMS_ITS ---
Author Name Auto Generated, Auto Generated Organization [facility] ice Address [address] [place] [address] Phone [phone] Care Team Providers Care Engineering Coordinator Name Role Phone Abiodun Tatum Unavailable Nestor Mann Unavailable Stephanie Luz Unavailable Functional Status No Results Mental Status No Results Allergies and Intolerances Name Onset Date Reaction Severity penicillin (Allergy) SatNov 23 18:36:00 EDT 202 0 IV Contrast (Allergy) SatNov 23 18:35:00 EDT 20 20 Medications Medication Directions Start Date End Date Xanax 1 mg tablet 1 tab TABLET Oral WI N 3 Times Daily SatNov 24 04:00:00 EDT 2019Nov 24 01:00:00 EDT 2019 Xanax 1 mg tablet 1 tab TABLET Oral WI N 3 Times Daily anxiety SatNov 24 [...] oxyCODONE 5 mg tablet 5mg TABLET Oral WI N Every 4 Hours Pain SatNov 23::00 [...] 21:00:00 EDT 2019Nov 24 01:00:00 EDT 2019 [place] 5 mg-325 mg tablet 1 tablet TABLET [...]
[2025-03-24 20:25] VITALS: BP 127/63; PULSE 104; RESP 22; TEMP 36.1; O2SAT 93
--- NOTE | 2025-03-25 01:40 | ED.EXTPRO ---
HPI - Extremity Problem General Chief complaint: Extremity Problem,Nontraumatic <Denisse Card PA-C - Last Filed: 03/25/25 03:17> Stated complaint: redness, swelling to the LLE <Denisse Card PA-C - Last Filed: 03/25/25 03:17> Time Seen by Provider: 03/25/25 01:29 <Denisse Card PA-C - Last Filed: 03/25/25 03:17> History of Present Illness HPI Narrative: 64-year-old female with history of COPD, GERD, LESTER, hypertension, hypothyroidism, hypercholesterolemia presents to emergency department for left lower extremity redness and swelling that started yesterday. Patient denies any injury or trauma. She denies fever or chills. She is reporting shortness of breath and a smoker's cough which is unchanged from her baseline. She currently smokes less than 1 pack per day. She states she left her albuterol inhaler at home and would like a breathing treatment. Denies chest pain. <Denisse Card PA-C - Last Filed: 03/25/25 03:17> Related Data Home medications: Home Medications ?Medication ?Instructions ?Recorded ?Confirmed ?Last Taken ?Type cholecalciferol (vitamin D3) 250 250 mcg PO DAILY 04/17/23 03/25/25 03/25/25 04:00 History mcg (10,000 unit) tablet docusate sodium 100 mg capsule 100 mg PO DAILY 04/17/23 03/25/25 03/25/25 04:00 History (Stool Softener) garlic 200 mg tablet 200 mg PO DAILY 04/17/23 03/25/25 03/25/25 04:00 History tizanidine 4 mg tablet 4 mg PO BID PRN muscle spasticity 12/02/23 03/25/25 Unknown History <Denisse Card PA-C - Last Filed: 03/25/25 03:17> Allergies/Adverse reactions: Allergies Allergy/AdvReac Type Severity Reaction Status Date / Time Iodinated Contrast Media Allergy Unknown Unknown Verified 03/25/25 05:20 Penicillins Allergy Unknown Unknown Verified 03/25/25 05:20 cefdinir (From Omnicef) AdvReac Intermediate unknown Verified 03/25/25 05:20 clarithromycin AdvReac Intermediate unknown Verified 03/25/25 05:20 <Denisse Card PA-C - Last Filed: 03/25/25 03:17> Review of Systems Review of Systems: All systems reviewed & are unremarkable except as noted in HPI and below <Denisse Card PA-C - Last Filed: 03/25/25 03:17> [facility] Past Medical History Medical History: Medical History Postlaminectomy syndrome, not elsewhere classified L2 & L3 Lumbar compression fracture Anxiety Depression Hypothyroid Endometriosis GERD (gastroesophageal reflux disease) Sleep apnea Asthma COPD (chronic obstructive pulmonary disease) Seizures <Denisse Card PA-C - Last Filed: 03/25/25 03:17> Surgical History Surgical History: Surgical History History of tubal ligation History of carpal tunnel surgery bilateral wrists History of arthroscopy of knee (03/25/17) History of vaginal hysterectomy (05/28/96) TVH w/BSO/cystocele repair/perinoplasty--stress urinary incontinence, chronic pelvic pain, endometriosis H/O laparoscopy History of orthopedic surgery 11/21/19 right leg broken/femur metal levi inserted History of bladder surgery urethral sling 2014 H/O dilation and curettage History of tonsillectomy H/O bilateral cataract extraction 2014 <Denisse Card PA-C - Last Filed: 03/25/25 03:17> Family History Family History: Family History Father Acute myocardial infarction Heart disease Mother Heart disease CHF Cerebrovascular accident Osteoporosis Hypertension Other Family history of cardiovascular disease Family history of mental disorder Family history of seizure disorder <Denisse Card PA-C - Last Filed: 03/25/25 03:17> Social History Social History: Social History Social History: Deena feels very confident filling out her medical forms and has asked for assistance with paying utility bills and food within the last 12 months. Smoking packs per day: 1 Smoking cigarettes per day: 20.0 Years smoked: 25 Smoking pack-years: 25.00 Smoking status: Current every day smoker Second hand tobacco smoke exposure: Yes Alcohol intake: never Substance use: never Substance use type: does not use Do You Feel Safe in your Home?: Yes Lack of Transportation: No Lack of Food: Never True Current Housing: I Do Not Have Housing Concerned About Future Housing: No Difficulty Paying Gas/Electric Bills: No Difficulty Paying for Meds: No Currently Unemployed: No Education: High School Diploma/GED Difficulty w/ Childcare or Family Care: No Living arrangements: with family Occupation/Education: retired Gender identity (if verbalized by the patient): Female Sexual Orientation (if Verbalized by the Patient): Straight or Heterosexual Spiritual care concerns: No Agree to blood products: Yes <Denisse Card PA-C - Last Filed: 03/25/25 03:17> Exam Narrative: GENERAL: Well-appearing, well-nourished, and in no acute distress. HEAD: Normocephalic, atraumatic. EYES: EOMI. ENT: Nares clear, no rhinorrhea or epistaxis. Mucous membranes moist. Edentulous NECK: Supple. CHEST: Inspiratory expiratory wheezing to the right upper and lower lung field. Patient satting 93% on room air in no respiratory distress. She is speaking in full sentences. HEART: Regular rate and rhythm. No murmur heard. Normal peripheral pulses. EXTREMITIES: Normal range of motion. No edema. SKIN: Pitting edema, blanching erythema, and warmth to the left lower extremity extending from the dorsum of the foot to the proximal tib-fib with tenderness. No crepitus or vesicles. DP pulses 2+. Sensation intact. NEURO: No focal deficits. Alert and oriented x3 <Denisse Card PA-C - Last Filed: 03/25/25 03:17> Course LITERACY TEACHER/PA Physician Supervision This patient was admitted to the hospital from the ED. I was available for consultation while patient in the ED but did not personally examine them and was not directly involved in their care. <Dawna Diaz MD - Last Filed: 03/25/25 18:05> Vital Signs Vital signs: Vital Signs Temperature 97.7 F 07/23/25 17:46 Pulse Rate 94 03/24/25 17:46 Respiratory Rate 16 03/24/25 17:46 Blood Pressure 125/71 03/24/25 17:46 Pulse Oximetry 93 03/24/25 17:46 Oxygen Delivery Room Air 03/24/25 17:46 Temperature 98.2 F 03/25/25 04:49 Pulse Rate 85 03/25/25 14:00 Respiratory Rate 12 03/25/25 14:00 Blood Pressure 127/83 03/25/25 14:00 Pulse Oximetry 99 03/25/25 14:00 Oxygen Delivery Room Air 03/25/25 08:53 <Denisse Card PA-C - Last Filed: 03/25/25 03:17> Vital Signs Temperature 97.7 F 03/24/25 17:46 Pulse Rate 94 03/24/25 17:46 Respiratory Rate 16 03/24/25 17:46 Blood Pressure 125/71 03/24/25 17:46 Pulse Oximetry 93 03/24/25 17:46 Oxygen Delivery Room Air 03/24/25 17:46 Temperature 98.2 F 03/25/25 04:49 Pulse Rate 85 03/25/25 14:00 Respiratory Rate 12 03/25/25 14:00 Blood Pressure 127/83 03/25/25 14:00 Pulse Oximetry 99 03/25/25 14:00 Oxygen Delivery Room Air 03/25/25 08:53 <Dawna Diaz MD - Last Filed: 03/25/25 18:05> MDM - Extremity (Nontraumatic) MDM Narrative Medical decision making narrative: 64-year-old female presents emergency department for left lower extremity tenderness, warmth, erythema and edema x1 day. Also is reporting shortness of breath and a ?smoker's cough? which is unchanged from her baseline. She left her albuterol inhaler at home and is requesting a breathing treatment. Triage vitals are stable. Patient is afebrile and nontoxic appearing. Satting 93% on room air in no respiratory distress. Exam is notable for the above. CBC without leukocytosis. Hemoglobin is 9.6 with a low MCV of 79.9 MCH of 23.5. Most recent hemoglobin from September 2023 was 13.4. Patient denies melena or hematochezia. She does note that she is currently on iron supplementation for JUNAID. Chemistries with mildly elevated creatinine of 1.1 and BUN of 19, fluids provided. Lactic acid normal at 2. ESR is elevated at 35. CRP is 15.3. Chest x-ray shows healing right 5th through 9th rib fractures with no acute cardiopulmonary findings. EKG shows sinus rhythm with occasional supraventricular premature complexes, normal ME interval, normal QRS duration, normal QTC, no ischemic changes. Left lower extremity venous duplex shows no DVT. Patient was updated on results. She is given a DuoNeb with improvement in lung sounds. Given rash bed progression and extensiveness of left lower extremity cellulitis, plan to admit for IV antibiotics. She was started on vancomycin in the ED. Blood cultures are pending. Discussed with hospitalist, Dr. Hamilton, who agrees to admission. Advises to order ferritin, iron and TIBC panels, vitamin B12 and folic acid for anemia. <Denisse Card PA-C - Last Filed: 03/25/25 03:17> Lab Data Result diagrams: 03/25/25 01:58 03/25/25 01:58 <Denisse Card PA-C - Last Filed: 03/25/25 03:17> Labs: Lab Results 03/25/25 Range/Units 01:58 WBC 9.3 (4.5-10.0) K/mm3 RBC 4.08 L (4.2-5.4) M/mm3 Hgb 9.6 L (12.0-15.0) g/dL Hct 32.6 L (37.0-47.0) % MCV 79.9 L (80-100) fl MCH 23.5 L (26-34) pg MCHC 29.4 L (32-36) g/dl RDW 16.9 H (11.5-14.5) % Plt Count 251 (150-375) k/mm3 MPV 8.7 (7.4-10.4) fl Immature Gran % (Auto) 0.9 H (0-0.5) % Neut % (Auto) 78.3 H (45.5-73.1) % Lymph % (Auto) 15.2 L (18.3-44.2) % [place] % (Auto) 5.3 (2.6-8.5) % Eos % (Auto) 0.0 (0-4.4) % Baso % (Auto) 0.3 (0.2-1.2) % Lymph # (Auto) 1.42 (0.9-3.2) K/mm3 [place] # (Auto) 0.5 (0.1-0.6) K/mm3 Eos # (Auto) 0.0 (0-0.3) K/mm3 Baso # (Auto) 0.0 (0.0-0.1) K/mm3 Abs Immat Gran (auto) 0.08 H (0.00-0.031) K/mm3 Absolute Neuts (auto) 7.3 H (1.3-6.7) K/mm3 Absolute Nucleated RBC 0.000 (0.0-0.012) K/mm3 Band Neutrophils % 0 (0-6) % Nucleated RBC % 0.0 (0.0-0.2) % Platelet Estimate Slightly increased (Adequate) Hypochromasia 1+ Anisocytosis 1+ Schistocytes None seen ESR 35 H (0-20) mm/hr Absolute Retic 0.10 (0.02-0.10) 10^6/uL Percent Retic 2.46 (0.7-4.3) % Immature Retic Fraction 34.0 H (3.0-15.9) % Retic Hgb Content 23.3 L (28.2-36.6) pg Sodium 138 (137-145) mmol/L Potassium 3.5 (3.4-5.0) mmol/L Chloride 99 (98-107) mmol/L Carbon Dioxide 31 H (22-30) mmol/L Anion Gap 8 (4-12) mmol/L BUN 19 H (7-17) mg/dL Creatinine 1.10 H (0.7-1.0) mg/dL Estim Creat Clear Calc 42 ml/min Estimated GFR 50 L (59 - ) Glucose 86 (65-110) mg/dL Lactic Acid 2.0 (0.7-2.0) mmol/L Calcium 9.1 (8.4-10.2) mg/dL Total Bilirubin 0.6 (0.2-1.3) mg/dL AST 20 (14-36) U/L ALT 15 (6-35) U/L Alkaline Phosphatase 83 (38-126) U/L C-Reactive Protein 15.3 H (<1.0) mg/dL Total Protein 6.3 (6.3-8.2) g/dL Albumin 3.2 L (3.5-5.1) g/dL Vitamin B12 < 159.0 L (239-931) pg/mL Folate 4.6 (2.76->20) ng/mL <Denisse Card PA-C - Last Filed: 03/25/25 03:17> Lab Results 03/25/25 Range/Units 01:58 WBC 9.3 (4.5-10.0) K/mm3 RBC 4.08 L (4.2-5.4) M/mm3 Hgb 9.6 L (12.0-15.0) g/dL Hct 32.6 L (37.0-47.0) % MCV 79.9 L (80-100) fl MCH 23.5 L (26-34) pg MCHC 29.4 L (32-36) g/dl RDW 16.9 H (11.5-14.5) % Plt Count 251 (150-375) k/mm3 MPV 8.7 (7.4-10.4) fl Immature Gran % (Auto) 0.9 H (0-0.5) % Neut % (Auto) 78.3 H (45.5-73.1) % Lymph % (Auto) 15.2 L (18.3-44.2) % [place] % (Auto) 5.3 (2.6-8.5) % Eos % (Auto) 0.0 (0-4.4) % Baso % (Auto) 0.3 (0.2-1.2) % Lymph # (Auto) 1.42 (0.9-3.2) K/mm3 [place] # (Auto) 0.5 (0.1-0.6) K/mm3 Eos # (Auto) 0.0 (0-0.3) K/mm3 Baso # (Auto) 0.0 (0.0-0.1) K/mm3 Abs Immat Gran (auto) 0.08 H (0.00-0.031) K/mm3 Absolute Neuts (auto) 7.3 H (1.3-6.7) K/mm3 Absolute Nucleated RBC 0.000 (0.0-0.012) K/mm3 Band Neutrophils % 0 (0-6) % Nucleated RBC % 0.0 (0.0-0.2) % Platelet Estimate Slightly increased (Adequate) Hypochromasia 1+ Anisocytosis 1+ Schistocytes None seen ESR 35 H (0-20) mm/hr Absolute Retic 0.10 (0.02-0.10) 10^6/uL Percent Retic 2.46 (0.7-4.3) % Immature Retic Fraction 34.0 H (3.0-15.9) % Retic Hgb Content 23.3 L (28.2-36.6) pg Sodium 138 (137-145) mmol/L Potassium 3.5 (3.4-5.0) mmol/L Chloride 99 (98-107) mmol/L Carbon Dioxide 31 H (22-30) mmol/L Anion Gap 8 (4-12) mmol/L BUN 19 H (7-17) mg/dL Creatinine 1.10 H (0.7-1.0) mg/dL Estim Creat Clear Calc 42 ml/min Estimated GFR 50 L (59 - ) Glucose 86 (65-110) mg/dL Lactic Acid 2.0 (0.7-2.0) mmol/L Calcium 9.1 (8.4-10.2) mg/dL Total Bilirubin 0.6 (0.2-1.3) mg/dL AST 20 (14-36) U/L ALT 15 (6-35) U/L Alkaline Phosphatase 83 (38-126) U/L C-Reactive Protein 15.3 H (<1.0) mg/dL Total Protein 6.3 (6.3-8.2) g/dL Albumin 3.2 L (3.5-5.1) g/dL Vitamin B12 < 159.0 L (239-931) pg/mL Folate 4.6 (2.76->20) ng/mL <Dawna Diaz MD - Last Filed: 03/25/25 18:05> Discharge Plan Discharge Clinical Impression: Hypochromic microcytic anemia Cellulitis Qualifiers: Site of cellulitis: extremity Site of cellulitis of extremity: lower extremity Laterality: left Qualified Code(s): L03.116 - Cellulitis of left lower limb <RANJANA Lanier Last Filed: 03/25/25 03:17> Patient Disposition: Still a Patient <RANJANA Lanier Last Filed: 03/25/25 03:17> Condition: Stable <RANJANA Lanier Last Filed: 03/25/25 03:17>
--- NOTE | 2025-03-25 01:42 | ECG_ITS ---
Test Date: 2025-03-25 02:12:59 Measurements Intervals [place] Rate: 93 P: 76 DE: 173 QRS: 63 QRSD: 85 T: 64 QT: 349 QTc: 436 Interpretive Statements SINUS RHYTHM WITH OCCASIONAL SUPRAVENTRICULAR PREMATURE COMPLEXES LOW QRS VOLTAGE IN PRECORDIAL LEADS [QRS DEFLECTION < 1.0 mV IN CHEST LEADS] NONSPECIFIC T-WAVE ABNORMALITY No previous ECG available for comparison Electronically Signed On 03-26-2025 15:41:08 CDT by Aries Connor M.D.
--- OUTSIDE RECORDS SUMMARY | 2025-03-25 01:42 | XMS_ITS ---
Author Name Auto Generated, Auto Generated Organization [facility] [employer] ice Address [address] [place] [address] Phone [phone] Care Team Providers Care Deli Cutter Slicer Name Role Phone Abiodun Tatum Unavailable Nestor Mann Unavailable Stephanie Luz Unavailable [phone] Functional Status No Results Mental Status No Results Allergies and Intolerances Name Onset Date Reaction Severity penicillin (Allergy) SatNov 23 18:36:00 EDT 202 0 IV Contrast (Allergy) SatNov 23 18:35:00 EDT 20 20 Medications Medication Directions Start Date End Date Xanax 1 mg tablet 1 tab TABLET Oral MD N 3 Times Daily SatNov 24 04:00:00 EDT 2019Nov 24 01:00:00 EDT 2019 Xanax 1 mg tablet 1 tab TABLET Oral MD N 3 Times Daily anxiety SatNov 24 [...] oxyCODONE 5 mg tablet 5mg TABLET Oral MD N Every 4 Hours Pain SatNov 23::00 [...] 21:00:00 EDT 2019Nov 24 01:00:00 EDT 2019 [place] 5 mg-325 mg tablet 1 tablet TABLET [...]
--- OUTSIDE RECORDS SUMMARY | 2025-03-25 01:42 | XMS_ITS | Encounter Summary ---
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
--- OUTSIDE RECORDS SUMMARY | 2025-03-25 01:42 | XMS_ITS | Clinical Summary ---
Author Organization [facility] Address [address] [place] [address] Care Team Providers Care Journalism Professor Name Role Phone Nestor Mann MD Unavailable [phone] Nestor Mann MD Primary Care Provider [phone] Allergies Active Allergy Reactions Criticality Noted Date [...] tabletIndications: Lumbar compression fracture, closed, initial encounter ([facility]) Take 1 tablet (5 mg total) by [...] Date Lumbar compression fracture, closed, initial encounter ([facility]) 12/11/2022 Family History Medical History Relation Comments [...] and heating? Not hard at all 12/11/2022 [employer] [facility] [employer] ional [facility] - Occupational Stress [...] place to sleep or slept in a retirement (including now)? No 12/11/2022 Comments No Sex [...] Martinez, JAKE Medical Devices Implanted Type Area Musical Engineer Device Identifier Shelf Expiration Date Model / Serial / Lot Graft Bone I Factor 5cc Allograft Putty Syringe - [id number] Implanted:Qty: 1 on 12/11/2022 by Stephanie Marinelli MD at [facility] Bone N/A: Spine Lumbar [employer] [id number] 03/01/2025 [id number] / / [id number] Graft Bone Allosource Canc Crushed Fd 15ml - [id number] Implanted:Qty: 1 on 12/11/2022 by Stephanie Marinelli MD at [facility] Bone N/A: Spine Lumbar [employer]OSOURCE [id number] 03/05/2027 [id number] / / [id number] Orthofix 140mm Mookie Implanted:Qty: 2 on 12/11/2022 by Stephanie Marinelli MD at [facility] Mookie N/A: Spine Lumbar ORTHOFIX [id number] / / Orthofix Set Screw Implanted:Qty: 10 on 12/11/2022 by Stephanie Marinelli MD at [facility] Screw N/A: Spine Lumbar ORTHOFIX 36-2001 / / Orthofix 4.5x45mm Screw Implanted:Qty: 4 on 12/11/2022 by Stephanie Marinelli MD at [facility] Screw N/A: Spine Lumbar ORTHOFIX [id number] / / Orthofix 5.5x45mm Screw Implanted:Qty: 4 on 12/11/2022 by Stephanie Marinelli MD at [facility] Screw N/A: Spine Lumbar ORTHOFIX 44-5545 / / Orthofix 6.5x45mm Screw Implanted:Qty: 2 on 12/11/2022 by Stephanie Marinelli MD at [facility] OSATHYA Screw N/A: Spine Lumbar ORTHOFIX [id number] / / Orthofix Body, Top Loading Implanted:Qty: 10 on 12/11/2022 by Stephanie Marinelli MD at [facility] OSATHYA N/A: Spine Lumbar ORTHOFIX [id number] / / Orthofix 6.5mm X 40mm Screw Implanted:Qty: 1 on 12/11/2022 by Stephanie Marinelli MD at [facility] N/A: Spine Lumbar ORTHOFIX 44-5640 / / Insurance MEDICAID MEDICARE Advance Directives Documents on File Type Date Recorded Patient Pressure Tank Operator Expl anation Advance Directives and Living Will 12/24/2022 11:00 AM 12/11/2022 [place]M [place]A FOR HEALTH CARE Power of Airline Captain 12/11/2022 1:58 PM * Full Code (Latest Code Status on File) Date Activated Date Inactivated Comments 12/16/2022 6:26 PM 12/21/2022 4:19 PM * Full Code Date Activated Date Inactivated Comments 12/11/2022 4:40 PM 12/16/2022 6:19 PM Care Teams Journalism Professor Relationship Specialty Start Date End Date Nestor Mann MD [address] [address] PCP - General FAMILY PRACTICE 12/11/22 Nestor Mann MD [address] [address] FAMILY PRACTICE 11/28/22
--- OUTSIDE RECORDS SUMMARY | 2025-03-25 01:42 | XMS_ITS | Clinical Summary ---
Author Organization [facility] Address [address] [place] [address] Care Team Providers Care It Security Analyst Name Role Phone Unavailable Primary Care Provider Unavailabl e Social History Tobacco Use Types Packs/Day Years Used Date Smoking Tobacco: Never Assessed Comments Unknown Sex and Gender Information Value Date Recorded Sex Assigned at Not on file Legal Sex Female 3:12 PM ORDER ENTRY Gender Identity Not on file Sexual Orientation [...]
--- OUTSIDE RECORDS SUMMARY | 2025-03-25 01:42 | XMS_ITS | Referral Summary ---
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 Gender Identity Not on file Sexual Orientation [...] on file Medical Devices Implanted Type Area Provider Network Manager Device Identifier Shelf Expiration Date Model / Serial / Lot Plate Plate Right: Hand [employer] [id number] Sureshot 8mm 85mm Lag Compression Kit Trochanteric Screw Bone Burroughs - [id number] Implanted:Qty: 1 on 11/21/2019 by Gal Mendoza MD at [facility] Right: Femur [employer] [id number] 12/11/2027 [id number] / / [id number] [employer]o [id number] Trigen [place]-Burroughs 10mm 40cm Antegrade Femur Right Trochanteric Nail - [id number] Implanted:Qty: 1 on 11/21/2019 by Gal Mendoza MD at [facility] Right: Femur [employer]o [id number] 02/26/2029 [id number] / / [id number] [employer] rtho [id number] 5mm 42.5mm Low Profile Internal Hex Femur Screw Bone Trigen - [id number] Implanted:Qty: 1 on 11/21/2019 by Gal Mendoza MD at [facility] Right: Femur [employer] rtho [id number] / / [employer]/Richco/O rtho [id number] 5mm 50mm Low Profile Internal Hex Femur Screw Bone Trigen - [id number] Implanted:Qty: 1 on 11/21/2019 by Gal Mendoza MD at [facility] Right: Femur [employer]tho [id number] / / Insurance MEDICARE [facility] MED[facility] [place] Advance Directives For more information, please contact: [phone] * Full Code (Latest Code Status on File) Date Activated Date Inactivated Comments 11/21/2019 12:09 AM 11/24/2019 6:32 PM * Full Code Date Activated Date Inactivated Comments 03/30/2018 10:17 PM 04/01/2018 1:00 PM Care Teams Mobile Electronics Installer Relationship Specialty Start Date End Date Nestor Mann MD [address] [place] [address] PCP - General 03/29/10 No, Physician 11/23/19
--- OUTSIDE RECORDS SUMMARY | 2025-03-25 01:42 | XMS_ITS | Encounter Summary ---
Author Organization [facility] Address [address] [place] [address] Phone Care Team Providers Care Truck Farmer Name Role Phone Nestor Mann MD Primary Care Prov ider No, Physician Unavailable Encounter Details Date Type Department Care Team (Late st Contact Info) Description 03/31/2018 Ophth Exam [facility] Ophthalmology [address] [place] [address] [address] [place] [address] Munira Harry MD PhD [address] [place] [address] Social History Tobacco Use Types Packs/Day Years Used Date Smoking Tobacco: Never Smokeless Tobacco: Never Comments No Sex and Gender Information Value Date Recorded Sex Assigned at Not on file 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
--- OUTSIDE RECORDS SUMMARY | 2025-03-25 01:42 | XMS_ITS ---
Author Name Auto Generated, Auto Generated Organization [facility] ice Address [address] [place] [address] Phone [phone] Care Team Providers Care Seed Potato Cutter Name Role Phone Abiodun Tatum Unavailable Nestor Mann Unavailable Stephanie Luz Unavailable Functional Status No Results Mental Status No Results Allergies and Intolerances Name Onset Date Reaction Severity penicillin (Allergy) SatNov 23 18:36:00 EDT 202 0 IV Contrast (Allergy) SatNov 23 18:35:00 EDT 20 20 Medications Medication Directions Start Date End Date Xanax 1 mg tablet 1 tab TABLET Oral IA N 3 Times Daily SatNov 24 04:00:00 EDT 2019Nov 24 01:00:00 EDT 2019 Xanax 1 mg tablet 1 tab TABLET Oral IA N 3 Times Daily anxiety SatNov 24 [...] oxyCODONE 5 mg tablet 5mg TABLET Oral IA N Every 4 Hours Pain SatNov 23::00 [...] 21:00:00 EDT 2019Nov 24 01:00:00 EDT 2019 [place] 5 mg-325 mg tablet 1 tablet TABLET [...]
--- OUTSIDE RECORDS SUMMARY | 2025-03-25 01:42 | XMS_ITS | Clinical Summary ---
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 Gender Identity Not on file Sexual [...] on file Medical Devices Implanted Type Area Diamond Sawer Device Identifier Shelf Expiration Date Model / Serial / Lot Plate Plate Right: Hand [employer] rtho [id number] Sureshot 8mm 85mm Lag Compression Kit Trochanteric Screw Bone Burroughs - [id number] Implanted:Qty: 1 on 11/21/2019 by Gal Mendoza MD at [facility] Right: Femur [employer] [id number] 12/11/2027 [id number] / / [id number] [employer] [id number] Trigen [place]-Burroughs 10mm 40cm Antegrade Femur Right Trochanteric Nail - [id number] Implanted:Qty: 1 on 11/21/2019 by Gal Mendoza MD at [facility] Right: Femur [employer] [id number] 02/26/2029 [id number] / / [id number] [employer]o [id number] 5mm 42.5mm Low Profile Internal Hex Femur Screw Bone Trigen - [id number] Implanted:Qty: 1 on 11/21/2019 by Gal Mendoza MD at [facility] Right: Femur [employer] [id number] / / [employer]o [id number] 5mm 50mm Low Profile Internal Hex Femur Screw Bone Trigen - [id number] Implanted:Qty: 1 on 11/21/2019 by Gal Mendoza MD at [facility] Right: Femur [employer] [id number] / / Insurance MEDICARE [facility] MEDICARE [facility] Address: [address] [address] [place] [address] [place] Advance Directives For more information, please contact: [phone] * Full Code (Latest Code Status on File) Date Activated Date Inactivated Comments 11/21/2019 12:09 AM 11/24/2019 6:32 PM * Full Code Date Activated Date Inactivated Comments 03/30/2018 10:17 PM 04/01/2018 1:00 PM Care Teams Dental Laboratory Worker Relationship Specialty Start Date End Date Nestor Mann MD [address] [place] [address] PCP - General 03/29/10 No, Physician 11/23/19
[2025-03-25 01:50] VITALS: PULSE 92; RESP 14
[2025-03-25] MEDS: IPRATROPIUM 0.5 MG/ALBUTEROL SULFATE 2.5 MG AMPUL.NEB 3 ML INHALATION (01:50)
[2025-03-25 01:59] VITALS: PULSE 100; RESP 16
[2025-03-25] MEDS: SODIUM CHLORIDE 0.9% IV 1,000 ML 999 ML IV CONT (02:02)
[2025-03-25 02:07] LABS: Hematocrit 32.6 % (37.0-47.0); Hemoglobin 9.6 g/dL (12.0-15.0); Immature Granulocyte Percent A 0.9 % (0-0.5); Lymphocytes Absolute Auto 1.42 K/mm3 (0.9-3.2); Mean Corpuscular HGB Conc 29.4 g/dl (32-36); Mean Corpuscular Hemoglobin 23.5 pg (26-34); Mean Corpuscular Volume 79.9 fl (80-100); Nucleated Red Blood Cells Absolute Auto 0.000 K/mm3 (0.0-0.012); Nucleated Red Blood Cells Perc 0.0 % (0.0-0.2); Platelet Count Result 251 k/mm3 (150-375); Red Blood Count 4.08 M/mm3 (4.2-5.4); White Blood Count 9.3 K/mm3 (4.5-10.0)
[2025-03-25 02:30] LABS: Band Neutrophils Percent 0 % (0-6)
[2025-03-25 02:31] LABS: Anisocytosis 1+; Hypochromasia 1+
[2025-03-25 02:32] LABS: Schistocytes None Seen
[2025-03-25 02:42] LABS: Alanine Aminotransferase 15 U/L (6-35); Albumin Level 3.2 g/dL (3.5-5.1); Alkaline Phosphatase 83 U/L (38-126); Anion Gap 8 mmol/L (4-12); Aspartate Amino Transferase 20 U/L (14-36); Bilirubin,Total 0.6 mg/dL (0.2-1.3); Blood Urea Nitrogen 19 mg/dL (7-17); Calcium 9.1 mg/dL (8.4-10.2); Carbon Dioxide 31 mmol/L (22-30); Chloride 99 mmol/L (98-107); Estimated CRCL calculation 42 ml/min; Estimated Glomerular Filt Rate 50; Glucose 86 mg/dL (65-110); Potassium 3.5 mmol/L (3.4-5.0); Sodium 138 mmol/L (137-145); Total Protein 6.3 g/dL (6.3-8.2)
[2025-03-25 02:58] LABS: CRP 15.3 mg/dL (<1.0)
[2025-03-25] MEDS: NICOTINE (*PBKC) 14 MG PATCH 1 PATCH TRANSDERM ×2 (03:35→12:15)
[2025-03-25 03:43] LABS: Iron 17 ug/dL (37-170)
[2025-03-25] MEDS: VANCOMYCIN 1,500 MG/NS 500 ML 1,500 MG/500 ML BAG 250 MG IVPB (03:48)
[2025-03-25 03:53] LABS: Percent Iron Saturation 5 % (20-50)
[2025-03-25 04:24] LABS: Ferritin 16.80 ng/mL (11.1-264)
[2025-03-25 04:44] VITALS: BMI 29.4
[2025-03-25 04:49] VITALS: BP 131/81; PULSE 102; RESP 22; TEMP 36.8; O2SAT 93
--- NOTE | 2025-03-25 04:55 | ADMGEN ---
This patient, Deena Wylie, was admitted to Medical Room 345-01. Patient/family oriented to hospital policies and general routines including ID bracelet, bed and alarms, visiting hours, pain management, procedures, bathroom and other care routines, personal items, smoking policy, room service/diet, and visiting hours. Information on how to activate the Rapid Response Team has been discussed. Patient/Family are encouraged to report perceived risks to care and to ask questions if they do not understand what they are told or what they should do.
--- NOTE | 2025-03-25 05:15 | PC.NURSE ---
Pt had weekly pill box with her. She states she took some medications in the ER with their approval. The box was locked in the room closet by 2 nurses ( and Luzmaria Rodriguez) will retrieve it tomorrow and take home.
--- NOTE | 2025-03-25 06:16 | ADMGEN ---
This patient, Deena Wylie, was admitted to 3 Medical Room [facility]- @ 0440. Patient/family oriented to hospital policies and general routines including ID bracelet, bed and alarms, visiting hours, pain management, procedures, bathroom and other care routines, personal items, smoking policy, room service/diet, and visiting hours. Information on how to activate the Rapid Response Team has been discussed. Patient/Family are encouraged to report perceived risks to care and to ask questions if they do not understand what they are told or what they should do.
[2025-03-25 07:53] LABS: Vitamin B12 < 159.0 pg/mL (239-931)
--- NOTE | 2025-03-25 08:33 | P.HP_ITS ---
H&P: HPI History of Present Illness Date/Time: 03/25/25 08:33 Chief Complaint: redness, swelling to the LLE Narrative: 64-year-old female with history of COPD, GERD, LESTER, hypertension, hypothyroidism, hypercholesterolemia presents to emergency department for left lower extremity redness and swelling. Patient noticed swelling tender and redness change of the left lower extremity about 2 days ago. Patient denies trauma, fall, insect bites. Patient denies fever, chills, nausea vomiting diarrhea dysuria. Patient also denied headache, focal weakness, photophobia, focal weakness Upon arrival to ED, patient was afebrile, patient has tachycardia tachypnea, Lab showed anemia hemoglobin 9.6 Elevated BUN creatinine ratio 90/1.110, GFR 42 PMFSH Past Medical History Medical History Postlaminectomy syndrome, not elsewhere classified L2 & L3 Lumbar compression fracture Anxiety Depression Hypothyroid Endometriosis GERD (gastroesophageal reflux disease) Sleep apnea Asthma COPD (chronic obstructive pulmonary disease) Seizures Surgical History Surgical History History of tubal ligation History of carpal tunnel surgery bilateral wrists History of arthroscopy of knee (03/25/17) History of vaginal hysterectomy (05/28/96) TVH w/BSO/cystocele repair/perinoplasty--stress urinary incontinence, chronic pelvic pain, endometriosis H/O laparoscopy History of orthopedic surgery 11/21/19 right leg broken/femur metal levi inserted History of bladder surgery urethral sling 2014 H/O dilation and curettage History of tonsillectomy H/O bilateral cataract extraction 2014 Family History Family History Father Acute myocardial infarction Heart disease Mother Heart disease CHF Cerebrovascular accident Osteoporosis Hypertension Other Family history of cardiovascular disease Family history of mental disorder Family history of seizure disorder Social History Social History Social History: Deena feels very confident filling out her medical forms and has asked for assistance with paying utility bills and food within the last 12 months. Smoking packs per day: 1 Smoking cigarettes per day: 20.0 Years smoked: 25 Smoking pack-years: 25.00 Smoking status: Current every day smoker Second hand tobacco smoke exposure: Yes Alcohol intake: never Substance use: never Substance use type: does not use Do You Feel Safe in your Home?: Yes Lack of Transportation: No Lack of Food: Never True Current Housing: I Do Not Have Housing Concerned About Future Housing: No Difficulty Paying Gas/Electric Bills: No Difficulty Paying for Meds: No Currently Unemployed: No Education: High School Diploma/GED Difficulty w/ Childcare or Family Care: No Living arrangements: with family Occupation/Education: retired Gender identity (if verbalized by the patient): Female Sexual Orientation (if Verbalized by the Patient): Straight or Heterosexual Spiritual care concerns: No Agree to blood products: Yes Meds Home Medications and Allergies Home Medications ?Medication ?Instructions ?Recorded ?Confirmed ?Type cholecalciferol (vitamin D3) 250 250 mcg PO DAILY 04/17/23 03/25/25 History mcg (10,000 unit) tablet docusate sodium 100 mg capsule 100 mg PO DAILY 04/17/23 03/25/25 History (Stool Softener) garlic 200 mg tablet 200 mg PO DAILY 04/17/23 03/25/25 History tizanidine 4 mg tablet 4 mg PO BID PRN muscle spasticity 12/02/23 03/25/25 History levothyroxine 112 mcg tablet 112 mcg PO DAILY #90 tabs 07/06/24 03/25/25 Rx naproxen 500 mg tablet 500 mg PO BID #180 tabs 07/06/24 03/25/25 Rx ibandronate 150 mg tablet 150 mg PO MONTHLY #3 tabs 11/27/24 03/25/25 Rx furosemide 40 mg tablet 80 mg (2 x 40 mg) PO DAILY #180 12/30/24 03/25/25 Rx tabs pantoprazole 40 mg tablet,delayed 40 mg PO BID #180 tabs 12/30/24 03/25/25 Rx release alprazolam 1 mg tablet 1 mg PO QID PRN anxiety #120 tabs 12/31/24 03/25/25 Rx amitriptyline 50 mg tablet 100 mg (2 x 50 mg) PO QHS #180 tabs 12/31/24 03/25/25 Rx gabapentin 300 mg capsule 300 mg PO BID #180 caps 01/17/25 03/25/25 Rx levetiracetam 500 mg tablet See Rx Instructions .Route 01/18/25 03/25/25 Rx .COMPLEX #180 tabs ondansetron 4 mg disintegrating See Rx Instructions .Route 01/25/25 03/25/25 Rx tablet .COMPLEX #40 tabs metoclopramide HCl 10 mg tablet 10 mg PO QHS #90 tabs 02/06/25 03/25/25 Rx albuterol sulfate 90 mcg/actuation 2 inh inhalation QID PRN shortness 02/23/25 03/25/25 Rx aerosol inhaler (Ventolin HFA) of breath or wheezing #6.7 grams hydrocodone 10 mg-acetaminophen 1 tablet PO Q4H PRN pain #150 tabs 03/15/25 03/25/25 Rx 325 mg tablet Allergies Allergy/AdvReac Type Severity Reaction Status Date / Time Iodinated Contrast Media Allergy Unknown Unknown Verified 03/25/25 05:20 Penicillins Allergy Unknown Unknown Verified 03/25/25 05:20 cefdinir (From Omnicef) AdvReac Intermediate unknown Verified 03/25/25 05:20 clarithromycin AdvReac Intermediate unknown Verified 03/25/25 05:20 Vital Signs Vital Signs - 24 hr 03/24/25 17:46 03/24/25 20:25 03/25/25 01:50 Temperature 97.7 F 97.0 F L Pulse Rate 94 104 H 92 Respiratory Rate 16 22 H 14 Blood Pressure 125/71 127/63 Pulse Oximetry 93 93 Oxygen Delivery Room Air 03/25/25 01:59 03/25/25 04:49 Temperature 98.2 F Pulse Rate 100 102 H Respiratory Rate 16 22 H Blood Pressure 131/81 Pulse Oximetry 93 Oxygen Delivery Exam Narrative: GENERAL: Pleasant, in no acute distress. Well-nourished. - EYES: EOMI. Anicteric. - HENT: Moist mucous membranes. - LUNGS: Clear to auscultation bilateral ly, no wheezing, rhonchi, or rales. - CARDIOVASCULAR: Regular rate and rhyth m. No murmur. No JVD. - ABDOMEN: Soft, non-tender and non-dist ended. No palpable masses. - EXTREMITIES: No edema. Peripheral puls es 2+. Non-tender. - NEUROLOGIC: No focal neurological defi cits. CN II-XII grossly intact. - PSYCHIATRIC: Awake, Alert and oriented x 3. Appropriate mood and affect. - SKIN: Redness, swelling, tenderness o f left lower extremity - LYMPH: No cervical lymphadenopathy. H&P: Results Labs Labs: Short CBC 03/25/25 Range/Units 01:58 WBC 9.3 (4.5-10.0) K/mm3 Hgb 9.6 L (12.0-15.0) g/dL Hct 32.6 L (37.0-47.0) % Plt Count 251 (150-375) k/mm3 BMP 03/25/25 01:58 Sodium 138 Potassium 3.5 Chloride 99 Carbon Dioxide 31 H BUN 19 H Creatinine 1.10 H Glucose 86 Calcium 9.1 Liver Function 03/25/25 Range/Units 01:58 Total Bilirubin 0.6 (0.2-1.3) mg/dL AST 20 (14-36) U/L ALT 15 (6-35) U/L Alkaline Phosphatase 83 (38-126) U/L Albumin 3.2 L (3.5-5.1) g/dL Assessment and Plan Assessment and plan (1) Cellulitis of left lower extremity: Code(s): L03.116 - Cellulitis of left lower limb Status: Acute (2) Essential (primary) hypertension: Code(s): I10 - Essential (primary) hypertension Status: Acute (3) Pure hypercholesterolemia, unspecified: Code(s): E78.00 - Pure hypercholesterolemia, unspecified Status: Acute (4) Hypothyroidism, unspecified: Code(s): E03.9 - Hypothyroidism, unspecified Status: Acute (5) Gastro-esophageal reflux disease without esophagitis: Code(s): K21.9 - Gastro-esophageal reflux disease without esophagitis Status: Acute (6) Anemia: Code(s): D64.9 - Anemia, unspecified Status: Acute Plan Cellulitis of left lower extremity Start vancomycin and ceftriaxone IV Monitor change of cellulitis closely History of seizure Continue Keppra 500 mg b.i.d. p.o. Hypothyroidism Continue Synthroid 112 mcg daily p.o. Anemia No obvious bleeding Follow-up CBC, iron panel, stool guaiac CKD stage 3 Avoid nephrotoxic medication Follow urinalysis Hospitalist MIPS Advance Care Plan I have confirmed that the patient's Advanced Care Plan is present, code status is documented, or surrogate decision maker is listed in patient medical record.: Yes Medication Reconciliation I have utilized all available resources to obtain, update and review the patients current medications (includes all prescriptions, OTC, herbals, cannabis, and nutritional supplements).: Yes
[2025-03-25 08:53] VITALS: O2SAT 95
[2025-03-25 10:16] LABS: Immature Reticulocyte Fraction 34.0 % (3.0-15.9); Reticulocyte Hemoglobin Conten 23.3 pg (28.2-36.6); Reticulocytes Absolute 0.10 10^6/uL (0.02-0.10)
[2025-03-25] MEDS: ALPRAZolam (*CRX) 0.5 MG TABLET 1 MG PO ×2 (11:42→17:18)
[2025-03-25] MEDS: HYDROcodone/acetaminophen (*CRX) 10-325 MG TABLET 1 TAB PO ×2 (11:43→17:17)
[2025-03-25] MEDS: cefTRIAXone 2 GM in SODIUM CHLORIDE 0.9% IV 100 ML 200 ML IVPB (11:50)
[2025-03-25 14:00] VITALS: BP 127/83; PULSE 85; RESP 12; O2SAT 99
[2025-03-25 16:21] LABS: Add Urine Microscopic? YES; Appearance Urine Clear (Clear); Glucose Urine UA Negative (Negative); Leukocyte Esterase Ur Trace LEU/UL (Negative); Nitrate Urine Negative (Negative); Non Pathogenic Casts 0-2; Specific Grav Ur 1.012 (1.001-1.035)
[2025-03-25] MEDS: GABAPENTIN 300 MG CAPSULE PO (17:15)
[2025-03-25] MEDS: NAPROXEN 500 MG TABLET PO (17:15)
[2025-03-25] MEDS: PANTOPRAZOLE 40 MG TABLET PO (21:31)
[2025-03-25] MEDS: METOCLOPRAMIDE HCL 10 MG TABLET PO (21:31)
[2025-03-25] MEDS: AMITRIPTYLINE HCL 25 MG TABLET 100 MG PO (21:31)
[2025-03-25 22:00] VITALS: BP 146/56; PULSE 81; RESP 20; TEMP 36.4; O2SAT 94
[2025-03-26] MEDS: VANCOMYCIN 1,500 MG/NS 500 ML 1,500 MG/500 ML BAG 250 MG IVPB (03:39)
[2025-03-26 04:56] VITALS: BP 151/74; PULSE 92; RESP 18; TEMP 36.4; O2SAT 94
[2025-03-26] MEDS: LEVOTHYROXINE SODIUM 112 MCG TABLET PO (05:39)
[2025-03-26] MEDS: HYDROcodone/acetaminophen (*CRX) 10-325 MG TABLET 1 TAB PO ×3 (05:40→20:39)
[2025-03-26 07:16] LABS: Estimated CRCL calculation 56 ml/min; Estimated Glomerular Filt Rate > 60
--- NOTE | 2025-03-26 08:07 | P.PNIM_ITS ---
Progress Note: A&P Assessment and Plan (1) Cellulitis of left lower extremity: Code(s): L03.116 - Cellulitis of left lower limb Status: Acute Assessment and Plan: - afebrile, HDS, WBC trending down - improving - continue Rocephin and vancomycin. Likely transition to PO abx and discharge in AM if continues to improve. - elevate extremity (2) Anemia: Qualifiers: Anemia type: iron deficiency Code(s): D64.9 - Anemia, unspecified Status: Acute Assessment and Plan: - Hgb 9.5 (previously 13.4 09/2023). Stable while admitted without signs of bleeding. - occult stool ordered - iron studies consistent with iron deficiency anemia. B12 also low. Patient denies history of colonoscopy. Appears occult stool was positive in the past. - ordered iron transfusion and B12 supplementation - discussed importance of outpatient follow-up with PCP/GI for screening colonoscopy (3) B12 deficiency: Code(s): E53.8 - Deficiency of other specified B group vitamins Status: Acute Assessment and Plan: - IM replacement ordered (4) Essential (primary) hypertension: Code(s): I10 - Essential (primary) hypertension Status: Acute Assessment and Plan: - continue home lasix (5) Hypothyroidism, unspecified: Code(s): E03.9 - Hypothyroidism, unspecified Status: Acute Assessment and Plan: - continue Synthroid (6) Gastro-esophageal reflux disease without esophagitis: Code(s): K21.9 - Gastro-esophageal reflux disease without esophagitis Status: Acute Assessment and Plan: - continue PPI (7) Epilepsy: Code(s): G40.909 - Epilepsy, unspecified, not intractable, without status epilepticus Status: Acute Assessment and Plan: - continue home Keppra Subjective Date/time seen: 03/26/25 08:07 Interval history: 64-year-old female with history of COPD, GERD, LESTER, hypertension, hypothyroidism, hypercholesterolemia presents to emergency department for left lower extremity redness and swelling. Patient seen and examined at bedside. Reports swelling and pain improved. Complaining of cough and sore t throat. Discussed anemia - patient denies signs of bleeding including bloody stools, melena. Exam Narrative: General: NAD Eyes: EOMI ENT: neck supple Cardiovascular: Regular rate and rhythm Respiratory: Clear to auscultation, respirations even and unlabored on RA Gastrointestinal: Soft, non tender Genitourinary: no suprapubic tenderness Musculoskeletal: No edema Skin: LLE with 1+ pitting edema and erythema extending from foor to mid calf, mild TTP and warmth Neuro: Alert. Psych: Mood appropriate Objective Data Vital Signs Vital Signs: Vital Signs - 24 hr 03/25/25 08:53 03/25/25 14:00 03/25/25 20:00 Temperature Pulse Rate 85 Respiratory Rate 12 Blood Pressure 127/83 Pulse Oximetry 95 99 Oxygen Delivery Room Air Room Air 03/25/25 22:00 03/26/25 04:56 Temperature 97.5 F L 97.5 F L Pulse Rate 81 92 Respiratory Rate 20 18 Blood Pressure 146/56 H 151/74 H Pulse Oximetry 94 94 Oxygen Delivery Intake/Output Intake/Output: Intake & Output 03/23/25 03/24/25 03/25/25 03/26/25 23:59 23:59 23:59 23:59 Intake Total 3222 850 Balance 3222 850 Meds/Results Medications: Active Medications Generic Name Dose Route Start Last Admin Trade Name Freq PRN Reason Stop Dose Admin Hydrocodone Bitart/Acetaminophen 1 tab 03/25/25 08:37 03/26/25 05:40 Hydrocodone/Acetaminophen (*Crx) 10-325 Mg Tablet PO 1 tab Q4H PRN Administration pain Albuterol 2 puff 03/25/25 08:37 Albuterol Sulfate (*Sp) Aerosol 1 Puff INHALATION QID PRN SOB/wheezing Alprazolam 1 mg 03/25/25 08:37 03/25/25 17:18 Alprazolam (*Crx) 0.5 Mg Tablet PO 1 mg QID PRN Administration anxiety Amitriptyline HCl 100 mg 03/25/25 21:00 03/25/25 21:31 Amitriptyline Hcl 25 Mg Tablet PO 100 mg QHS ALEX Administration Docusate Sodium 100 mg 03/25/25 09:00 03/25/25 13:54 Docusate Sodium 100 Mg Capsule PO Not Given DAILY ALEX Furosemide 80 mg 03/25/25 09:00 03/25/25 13:54 Furosemide 40 Mg Tablet PO Not Given DAILY ALEX Gabapentin 300 mg 03/25/25 09:00 03/25/25 17:15 Gabapentin 300 Mg Capsule PO 300 mg BID ALEX Administration Vancomycin HCl 1,500 mg in 500 mls @ 250 mls/hr 03/25/25 03:00 03/26/25 05:45 Vancomycin 1,500 Mg/Ns 500 Ml IVPB Infused Q24H ALEX Infusion Ceftriaxone Sodium 2 gm/ 100 mls @ 200 mls/hr 03/25/25 10:00 03/25/25 11:50 Sodium Chloride IVPB 200 mls/hr Q24H ALEX Administration Levetiracetam 500 mg 03/25/25 09:00 03/25/25 21:31 Levetiracetam 500 Mg Tablet PO 500 mg Q12HR ALEX Administration Levothyroxine Sodium 112 mcg 03/26/25 06:30 03/26/25 05:39 Levothyroxine Sodium 112 Mcg Tablet PO 112 mcg DAILY@0630 ALEX Administration Metoclopramide HCl 10 mg 03/25/25 21:00 03/25/25 21:31 Metoclopramide Hcl 10 Mg Tablet PO 10 mg QHS ALEX Administration Naproxen 500 mg 03/25/25 09:00 03/25/25 17:15 Naproxen 500 Mg Tablet PO 500 mg BID ALEX Administration Nicotine 1 patch 03/25/25 02:50 03/25/25 12:15 Nicotine (*Pbkc) 14 Mg Patch TRANSDERM 1 patch DAILY ALEX Administration Pantoprazole Sodium 40 mg 03/25/25 09:00 03/25/25 21:31 Pantoprazole 40 Mg Tablet PO 40 mg Q12HR ALEX Administration Tizanidine HCl 4 mg 03/25/25 08:37 Tizanidine Hcl 4 Mg Tablet PO BID PRN muscle spasticity Vitamin D 25 mcg 03/26/25 09:00 Cholecalciferol (Vitamin D3) 25 Mcg (1,000 Units) Tablet PO DAILY [facility] Radiology Results: ITS Impressions Venous Doppler Study 03/24/25 18:20 IMPRESSION: 1. No deep venous thrombosis in the left lower limb. Chest X-Ray 03/25/25 04:42 IMPRESSION: 1: NO ACUTE CARDIOPULMONARY DISEASE. Labs Labs: Laboratory Results - last 24 hr 03/25/25 03/25/25 03/26/25 01:58 15:58 06:07 Absolute Retic 0.10 Percent Retic 2.46 Immature Retic Fraction 34.0 H Retic Hgb Content 23.3 L Creatinine 0.81 Estim Creat Clear Calc 56 Estimated GFR > 60 Urine Color Yellow Urine Appearance Clear Urine pH 6.0 Ur Specific [place] 1.012 Urine Protein Negative Urine Glucose (UA) Negative Urine Ketones Negative Ur Blood (Man) Negative Urine Nitrate Negative Urine Bilirubin Negative Urine Urobilinogen 1.0 Ur Leukocyte Esterase Trace H Urine RBC 0-2 Urine WBC 0-5 Ur Squamous Epith Cells None seen Urine Bacteria None seen Urine Casts 0-2 Quality If No VTE Prophylaxis Answer both mechanical and pharmacologic: Reason no mechanical VTE proph: medical contraindication Hospitalist MIPS Advance Care Plan I have confirmed that the patient's Advanced Care Plan is present, code status is documented, or surrogate decision maker is listed in patient medical record.: Yes
[2025-03-26] MEDS: CHOLECALCIFEROL (VITAMIN D3) 25 MCG (1,000 UNITS) TABLET PO (08:23)
[2025-03-26] MEDS: NAPROXEN 500 MG TABLET PO ×2 (08:24→17:35)
[2025-03-26] MEDS: FUROSEMIDE 40 MG TABLET 80 MG PO (08:24)
[2025-03-26] MEDS: PANTOPRAZOLE 40 MG TABLET PO ×2 (08:24→20:35)
[2025-03-26] MEDS: GABAPENTIN 300 MG CAPSULE PO ×2 (08:24→17:35)
[2025-03-26] MEDS: DOCUSATE SODIUM 100 MG CAPSULE PO (08:24)
[2025-03-26] MEDS: NICOTINE (*PBKC) 14 MG PATCH 1 PATCH TRANSDERM (08:25)
[2025-03-26 09:54] LABS: Hematocrit 33.9 % (37.0-47.0); Hemoglobin 9.5 g/dL (12.0-15.0); Mean Corpuscular HGB Conc 28.0 g/dl (32-36); Mean Corpuscular Hemoglobin 23.5 pg (26-34); Mean Corpuscular Volume 83.7 fl (80-100); Platelet Count Result 264 k/mm3 (150-375); Red Blood Count 4.05 M/mm3 (4.2-5.4); White Blood Count 7.1 K/mm3 (4.5-10.0)
[2025-03-26 10:16] LABS: CRP 12.2 mg/dL (<1.0)
[2025-03-26] MEDS: cefTRIAXone 2 GM in SODIUM CHLORIDE 0.9% IV 100 ML 200 ML IVPB (10:19)
[2025-03-26] MEDS: CYANOCOBALAMIN INJ 1,000 MCG/ML VIAL 1000 MCG IM (10:20)
[2025-03-26 11:11] LABS: Influenza A QL RT-PCR Negative (Negative); Influenza B QL RT-PCR Negative (Negative); RSV RNA, RT-PCR Negative (Negative); SARS-CoV-2 RNA PCR Negative (Negative)
[2025-03-26] MEDS: IRON SUCROSE COMPLEX 200 MG, IRON SUCROSE COMPLEX 100 MG in SODIUM CHLORIDE 0.9% IV 250 ML 176.67 MG IVPB (11:30)
[2025-03-26] MEDS: ONDANSETRON INJ 4 MG/2 ML VIAL IV PUSH (13:45)
[2025-03-26] MEDS: ALPRAZolam (*CRX) 0.5 MG TABLET 1 MG PO (13:49)
[2025-03-26 14:00] VITALS: BP 136/80; PULSE 91; RESP 20; TEMP 36.8; O2SAT 95
[2025-03-26] MEDS: METOCLOPRAMIDE HCL 10 MG TABLET PO (20:35)
[2025-03-26] MEDS: AMITRIPTYLINE HCL 25 MG TABLET 100 MG PO (20:35)
[2025-03-26 22:00] VITALS: BP 109/79; PULSE 75; RESP 16; TEMP 36.6; O2SAT 93
[2025-03-27] MEDS: VANCOMYCIN 1,500 MG/NS 500 ML 1,500 MG/500 ML BAG 250 MG IVPB (02:58)
[2025-03-27] MEDS: LEVOTHYROXINE SODIUM 112 MCG TABLET PO (05:43)
[2025-03-27 05:52] LABS: Hematocrit 33.9 % (37.0-47.0); Hemoglobin 9.7 g/dL (12.0-15.0); Immature Granulocyte Percent A 1.0 % (0-0.5); Lymphocytes Absolute Auto 1.37 K/mm3 (0.9-3.2); Mean Corpuscular HGB Conc 28.6 g/dl (32-36); Mean Corpuscular Hemoglobin 23.4 pg (26-34); Mean Corpuscular Volume 81.9 fl (80-100); Nucleated Red Blood Cells Absolute Auto 0.000 K/mm3 (0.0-0.012); Nucleated Red Blood Cells Perc 0.0 % (0.0-0.2); Platelet Count Result 254 k/mm3 (150-375); Red Blood Count 4.14 M/mm3 (4.2-5.4); White Blood Count 6.8 K/mm3 (4.5-10.0)
[2025-03-27 06:00] VITALS: BP 133/70; PULSE 61; RESP 16; TEMP 36.5; O2SAT 95
[2025-03-27 06:19] LABS: CRP 5.4 mg/dL (<1.0); Estimated CRCL calculation 52 ml/min; Estimated Glomerular Filt Rate > 60
[2025-03-27 07:18] LABS: Anisocytosis 1+; Hypochromasia 1+; Schistocytes None Seen
[2025-03-27] MEDS: HYDROcodone/acetaminophen (*CRX) 10-325 MG TABLET 1 TAB PO (08:56)
[2025-03-27] MEDS: GABAPENTIN 300 MG CAPSULE PO (08:57)
[2025-03-27] MEDS: NICOTINE (*PBKC) 14 MG PATCH 1 PATCH TRANSDERM (08:57)
[2025-03-27] MEDS: CHOLECALCIFEROL (VITAMIN D3) 25 MCG (1,000 UNITS) TABLET PO (08:57)
[2025-03-27] MEDS: ALPRAZolam (*CRX) 0.5 MG TABLET 1 MG PO (08:57)
[2025-03-27] MEDS: DOCUSATE SODIUM 100 MG CAPSULE PO (08:57)
[2025-03-27] MEDS: PANTOPRAZOLE 40 MG TABLET PO (08:57)
[2025-03-27] MEDS: FUROSEMIDE 40 MG TABLET 80 MG PO (08:57)
[2025-03-27] MEDS: NAPROXEN 500 MG TABLET PO (08:57)
[2025-03-27] MEDS: cefTRIAXone 2 GM in SODIUM CHLORIDE 0.9% IV 100 ML 200 ML IVPB (09:00)
--- NOTE | 2025-03-27 10:37 | P.DS_ITS ---
DS: Admitting Diagnosis Discharge Date 03/27/25 Admitting Diagnosis - Cellulitis of left lower limb - anemia - B12 deficiency - Essential HTN - Hypothyroidism - GERD - epilepsy DS: Discharge Diagnosis Discharge Diagnosis (1) Cellulitis of left lower extremity: Code(s): L03.116 - Cellulitis of left lower limb Status: Acute (2) Anemia: Qualifiers: Anemia type: iron deficiency Code(s): D64.9 - Anemia, unspecified Status: Acute (3) B12 deficiency: Code(s): E53.8 - Deficiency of other specified B group vitamins Status: Acute (4) Essential (primary) hypertension: Code(s): I10 - Essential (primary) hypertension Status: Acute (5) Hypothyroidism, unspecified: Code(s): E03.9 - Hypothyroidism, unspecified Status: Acute (6) Gastro-esophageal reflux disease without esophagitis: Code(s): K21.9 - Gastro-esophageal reflux disease without esophagitis Status: Acute (7) Epilepsy: Code(s): G40.909 - Epilepsy, unspecified, not intractable, without status epilepticus Status: Acute DS: Summary Hospital Course Reason for hospitalization: - Cellulitis of left lower limb Hospital Course: Patient is a 64-year-old female with history of COPD, GERD, LESTER, hypertension, hypothyroidism, hypercholesterolemia who presented to the emergency department complaints of lower extremity redness and swelling. She was admitted for left lower extremity cellulitis. She was started on IV Rocephin and IV vancomycin. There was no sign of purulence or fluid collection. She was not meeting sepsis criteria on admission. She was not on antibiotics prior to admission and is not a diabetic. Left lower extremity venous Doppler was negative for DVT. Cellulitic changes improved greatly with IV antibiotics. She remained afebrile without leukocytosis. CRP trended down. Given no signs of abscess, no purulent drainage and no history of MRSA she was transitioned to Keflex p.o. on discharge to complete a 7 day course of antibiotics. She was instructed to monitor for worsening erythema, swelling, drainage, fevers and to return to the emergency department if worsening. Patient also found to have microcytic anemia. Hemoglobin was 9.5, previously 13.4 09/2023. Iron studies were consistent with iron deficiency anemia and she was found to have vitamin B12 deficiency. She denied signs of bleeding. She has not a colonoscopy and she is not interested in having one at this time. Stool occult was not obtained during admission. She received Venofer infusion and B12 injection. She was started on p.o. iron and B12 supplementation encouraged to follow-up closely with her primary care provider. Did discuss concerns for malignancy given no history of colonoscopy and iron deficiency anemia, patient still wishes to defer colonoscopy at this time. Hemoglobin was stable on discharge. She was encouraged to continue her home medications for hypertension, hypothyroidism, GERD and epilepsy. Patient was discharged home in stable condition. Strict return precautions discussed. Status at Discharge Functional status at discharge: independent ambulation Time Spent with Patient Time attestation: Total time spent providing and/or coordinating discharge services: Time spent: Greater than 30 minutes Exam Narrative: General: NAD Eyes: EOMI ENT: neck supple Cardiovascular: Regular rate and rhythm Respiratory: Clear to auscultation, respirations even and unlabored on RA Gastrointestinal: Soft, non tender Genitourinary: no suprapubic tenderness Musculoskeletal: No edema Skin: LLE with 1+ pitting edema and erythema extending from foor to mid calf, mild TTP and warmth which improved from yesterday's exam Neuro: Alert. Psych: Mood appropriate DS: Data Data Completed and Pending Labs on day of discharge: Labs from last 24 hours 03/27/25 03/26/25 05:44 10:27 WBC 6.8 RBC 4.14 L Hgb 9.7 L Hct 33.9 L MCV 81.9 MCH 23.4 L MCHC 28.6 L RDW 16.7 H Plt Count 254 MPV 8.3 Immature Gran % (Auto) 1.0 H Neut % (Auto) 71.8 Lymph % (Auto) 20.2 [place] % (Auto) 6.6 Eos % (Auto) 0.0 Baso % (Auto) 0.4 Lymph # (Auto) 1.37 [place] # (Auto) 0.5 Eos # (Auto) 0.0 Baso # (Auto) 0.0 Abs Immat Gran (auto) 0.07 H Absolute Neuts (auto) 4.9 Absolute Nucleated RBC 0.000 Band Neutrophils % Not Reportable Nucleated RBC % 0.0 Platelet Estimate Adequate Hypochromasia 1+ Anisocytosis 1+ Schistocytes None seen Creatinine 0.88 Estim Creat Clear Calc 52 Estimated GFR > 60 C-Reactive Protein 5.4 H Influenza A (RT-PCR) Negative Influenza B (RT-PCR) Negative RSV (RT-PCR) Negative SARS-CoV-2 RNA (RT-PCR) Negative Discharge Plan Discharge Attending physician on discharge: Cornelia Holbrook Consulting providers: Ria Arndt Discharging Clinician: Ria Arndt Patient Disposition: Home Activity: as tolerated Diet: as tolerated Discharge Instructions: Take all medications as prescribed. Finish antibiotics if prescribed, even if you are feeling better. Follow-up with your primary care provider in one week. While in the hospital, year found to be anemic likely secondary to iron deficiency. He received an iron transfusion and had been started on iron supplement. It is very important to follow-up with her primary care doctor to have your blood levels rechecked. It is also important to consider outpatient colonoscopy to evaluate for causes of bleeding. Your primary care provider may consider referring you to a ed special education teacher if your anemia persists. While in the hospital, your also diagnosed with vitamin B12 deficiency. He received a B12 injection and was started on B12 supplements. Discuss B12 supplementation with your primary care provider as they may recommend injections as an outpatient. Stop taking naproxen as this increases your risk for gastrointestinal bleeding. Return to the emergency department if you develop increased lower extremity redness, swelling, pus drainage, chest pain, shortness of breath, persistent fever >100.4, confusion, loss of consciousness. Patient Instructions: Antibiotic Form, Cephalexin (By mouth), Vitamin B-12 (By mouth), Cellulitis (GEN), Iron Deficiency Anemia (GEN), Anemia (GEN), Vitamin B12 Deficiency (GEN) Patient Language: Sen[place]e Stand Alone Forms: General Discharge Information Follow-up/Referrals: Nestor Mann MD [Primary Care Provider] - Call for Appointment (Follow-up within one week) Discharge Medications: New cephalexin 500 mg capsule 500 mg PO Q6H 4 Days Qty: 16 0RF mecobalamin (vitamin B12) 1,000 mcg tablet,chewable 1,000 mcg PO DAILY Qty: 30 0RF ferrous sulfate 324 mg (65 mg iron) tablet,delayed release (DR/EC) 324 mg PO DAILY Qty: 30 0RF Continued docusate sodium [Stool Softener] 100 mg capsule 100 mg PO DAILY cholecalciferol (vitamin D3) 250 mcg (10,000 unit) tablet 250 mcg PO DAILY garlic 200 mg tablet 200 mg PO DAILY tizanidine 4 mg tablet 4 mg PO BID PRN (Reason: muscle spasticity) amitriptyline 50 mg tablet 100 mg PO QHS Qty: 180 1RF alprazolam 1 mg tablet 1 mg PO QID PRN (Reason: anxiety) Qty: 120 5RF levothyroxine 112 mcg tablet 112 mcg PO DAILY Qty: 90 2RF ibandronate 150 mg tablet 150 mg PO MONTHLY Qty: 3 3RF furosemide 40 mg tablet 80 mg PO DAILY Qty: 180 1RF pantoprazole 40 mg tablet,delayed release (DR/EC) 40 mg PO BID Qty: 180 1RF gabapentin 300 mg capsule 300 mg PO BID Qty: 180 2RF levetiracetam 500 mg tablet See Rx Instructions .ROUTE .COMPLEX Qty: 180 2RF Dose Instruction: Take 1 tablet by mouth twice daily Rx Instructions: Take 1 tablet by mouth twice daily ondansetron 4 mg tablet,disintegrating See Rx Instructions .ROUTE .COMPLEX Qty: 40 2RF Dose Instruction: DISSOLVE 1 TABLET IN MOUTH EVERY 6 HOURS NEEDED FOR NAUSEA AND VOMITING Rx Instructions: DISSOLVE 1 TABLET IN MOUTH EVERY 6 HOURS NEEDED FOR NAUSEA AND VOMITING metoclopramide HCl 10 mg tablet 10 mg PO QHS Qty: 90 2RF albuterol sulfate [Ventolin HFA] 90 mcg/actuation HFA aerosol inhaler 2 inh inhalation QID PRN (Reason: shortness of breath or wheezing) Qty: 6.7 0RF hydrocodone-acetaminophen 10-325 mg tablet 1 tablet PO Q4H PRN (Reason: pain) Qty: 150 0RF Discontinued naproxen 500 mg tablet 500 mg PO BID Qty: 180 2RF Date of admission: 03/26/25 09:52 Primary Care Provider: Nestor Mann Admitting Provider: Fang Hamilton Attending physician on admission: Fang Hamilton Condition: Stable
== END 2025-03-27 12:25 | disposition home or self-care (01) | DRG 603 ==
LOC: ANHED 03-25 02:51 → ANH3MED 03-25 04:17
PROVIDERS: Hospitalist; Physician Assistant; Admitting Provider Internal Medicine; Emergency Provider Physician Assistant; PCP Family Medicine Adolescent Medicine; Visit Provider Internal Medicine
DX: L03.116 Cellulitis of left lower limb (principal); K21.9 Gastro-esophageal reflux disease without esophagitis; D50.9 Iron deficiency anemia, unspecified; E03.9 Hypothyroidism, unspecified; E53.8 Deficiency of other specified B group vitamins; G40.909 Epilepsy, unspecified, not intractable, without status epilepticus; G47.33 Obstructive sleep apnea (adult) (pediatric); E78.00 Pure hypercholesterolemia, unspecified; I12.9 Hypertensive chronic kidney disease with stage 1 through stage 4 chronic kidney disease, or unspecified chronic kidney disease; N18.30 Chronic kidney disease, stage 3 unspecified; J44.9 Chronic obstructive pulmonary disease, unspecified
CPT/HCPCS: 36415; 71045; 80053; 81001; 82565; 82607; 82728; 82746; 83540; 83550; 83605; 85025; 85027; 85046; 85652; 86140; 87040; 87637; 93005; 93971; 94640; 96361; 96365; 99285; A9270; G0378; J0696; J1756; J2405; J3373; J3420; J7030; J7050